=== PATIENT | male | born 1970 | race African-American/Black ===

== ENCOUNTER 2024-10-08 23:16 | Emergency (ER) | payer MEDICAID, SELFPAY ==
[2024-10-08 23:19] VITALS: BMI 28.6
--- NOTE | 2024-10-08 23:20 | PD.EDFEVER ---
ED Fever RME/HPI General Chief Complaint: Fever Stated Complaint: NAUSEA, FEVER, COUGH, BLOOD IN SPUTUM Time Seen by Provider: 10/08/24 23:32 Arrival date/time: 10/08/24 23:16 RME / HPI RME / HPI Narrative: This section includes all my notes and documentations, including HPI, PE, and ED course. Aristides Evans MD HPI: 54yo male with about a week history of worsening cough, productive cough, purulent sputum, and dyspnea. With subjective fever and chills and aches. No chest pain. No other complaints. ROS: All negative except as documented in HPI. Physical Exam: General: Alert and oriented. Appearance no malaise noted. Hypoxia noted. Eyes: Conjunctivae and lids clear. ENT: No nasal congestion. Neck: Supple. Heart: RRR. Lungs: No respiratory distress. Mildly decreased air movement with rales. Abdomen: Soft and nontender. Normal bowel sounds. No distension. No rebound or guarding. Back: No CVA tenderness. Legs: No edema. Skin: Warm and dry. Neuro: Alert and oriented X 3. I reviewed all diagnostic test results. My interpretation of the EKG is sinus tachycardia with nonspecific ST-T changes. My interpretation of the chest x-ray is mild heart failure and infiltrates. Blood tests remarkable for WBC 13.0, CRP 1.2, BNP 275. UA remarkable for positive leukocyte esterase, 17 WBCs, and rare bacteria. UDS positive for marijuana. COVID/Influenza negative. At this point, diagnoses include Acute respiratory failure with hypoxia, CHF (congestive heart failure), Pneumonia, UTI (urinary tract infection). Treatment here included Toradol, Solumedrol, Duoneb, NS, Lasix, Rocephin, Azithromycin, and topical nitroglycerin. He felt much better. Recommended admission. Patient declined. Discussed potential risks, including sudden . We couldn't change his mind. Patient signed out against medical advice. Discharge instructions from Dr. Evans: --After extensive evaluation, you have severe diagnoses. Including hypoxia needing oxygen, pneumonia, UTI, and heart failure with fluid in your lungs. --Recommend admission into the hospital for further care. But you declined and signed AGAINST MEDICAL ADVICE form. Despite discussing potential risks, including sudden , we couldn't change your mind. --No physical exertion for 3 days to help rest the lungs. ?No smoking or exposure to smoking or pets or dust or cold or humidity. --Zithromax and cefdinir to kill the germs causing the pneumonia and UTI. --Albuterol 2 puffs every 4-6 hours as needed for cough or shortness of breath. --When you were younger, your heart was strong and pumped everything out. Now that your heart is weaker, it?s not able to pump all the blood/fluid out of the heart when it pumps. So the remaining blood/fluid goes back into your lungs. --To help urinate out the extra fluid, take Lasix daily. --When sitting or resting and sleeping, elevate the head of bed and elevate your feet/ankles above your waist level. This is extremely important to get the extra fluid back into your circulation so you can urinate out the extra fluid. --Limit all oral fluid intake to less than 4 cups per 24 hours for 3 days. Then don't go out of your way to drink too much fluid--only when your body tells you to drink. --Eat a banana daily because Lasix can lower your potassium level. --See a private doctor on 10/10/2024 for recheck and further care. Ask to review all test results and official radiology reports, to make sure you receive all necessary follow-ups and monitoring. Ask for help until you are completely better. To make sure there is no serious underlying heart condition, ask to help you get more tests for your heart that cannot be done here in the ER. Such as Holter Monitor (cardiac monitoring at home from a day to even a month), heart stress test (on treadmill or with medication), echocardiogram (imaging of your heart structures), heart catherization (checking for blockages in your heart arteries), and a referral to see a Treatment Plant Mechanic. --Seek immediate medical care with worsening or with any concerns. Aristides Evans MD Related Data Previous Rx's ?Medication ?Instructions ?Recorded ibuprofen 800 mg tablet 800 mg PO TID PRN pain #30 tabs 07/27/20 hydrocodone 5 mg-acetaminophen 325 1 tab PO BID PRN pain #10 tabs 08/03/23 mg tablet ibuprofen 800 mg tablet 800 mg PO TID PRN pain #30 tabs 08/03/23 albuterol sulfate 90 mcg/actuation 2 puff inhalation Q6H PRN 10/09/24 aerosol inhaler shortness of breath or wheezing #8.5 grams azithromycin 500 mg tablet 500 mg PO QDAY 3 days #3 tabs 10/09/24 (Zithromax TRI-AMY) cefdinir 300 mg capsule 300 mg PO BID #14 caps 10/09/24 furosemide 20 mg tablet (Lasix) 20 mg PO QDAY #30 tabs 10/09/24 Allergies Allergy/AdvReac Type Severity Reaction Status Date / Time No Known Allergies Allergy Verified 10/08/24 23:23 Review of Systems Review of Systems Systems Reviewed: All systems reviewed, normal except as documented Past Medical History Past Medical History NEUROLOGIC: Negative Neurological Disorders CARDIAC: Negative Cardiac Disorders Social History SMOKING STATUS: Never smoker Physical Exam Narrative Physical exam: As noted in HPI. Course Course Course Narrative: CXR is ordered for determining the etiology of fever. Quality Measures none Orders Category Date Time Status Bedside COVID-19 Antigen Test NOW Care 10/08/24 23:25 Completed Bedside Influenza A&B Antigen Test NOW Care 10/08/24 23:25 Completed EKG (ED ONLY) *Do not use* NOW Care 10/08/24 23:42 Completed Saline [Insert IV] NOW Care 10/08/24 23:25 Completed EKG (ED Only) Stat Exams 10/08/24 23:42 Ordered XR chest 1V portable Stat Exams 10/08/24 23:26 Completed BNP [B-Type Natriuretic Peptide] Stat Lab 10/08/24 23:51 Completed Bilirubin,Direct Stat Lab 10/08/24 23:51 Completed Blood Culture (Lab) Stat Lab 10/08/24 23:48 Received CBC Stat Lab 10/08/24 23:51 Completed CMP [Comprehensive Metabolic Panel] Stat Lab 10/08/24 23:51 Completed CRP [C-Reactive Protein] Stat Lab 10/08/24 23:51 Completed D-Dimer Stat Lab 10/08/24 23:51 Completed Drug Screen,Urine Stat Lab 10/08/24 23:42 Completed ESR [Sed Rate (ESR)] Stat Lab 10/08/24 23:51 Completed Magnesium Stat Lab 10/08/24 23:51 Completed Procalcitonin Stat Lab 10/08/24 23:51 Completed Troponin I Stat Lab 10/08/24 23:51 Completed UA, C/S IF [Urinalysis, C/S if Indicated] Stat Lab 10/08/24 22:50 Completed Urine Culture Stat Lab 10/08/24 22:50 Received Albuterol/Ipratr Rt Sujatha [Duoneb Rt Sujatha] Med 10/08/24 23:41 Discontinued 3 ml INH X1 ONE Azithromycin Po [Zithromax PO] Med 10/09/24 00:28 Discontinued 500 mg PO X1 ONE Furosemide Inj [Lasix Inj] Med 10/09/24 00:28 Discontinued 40 mg IVP X1 ONE Ketorolac Inj [Toradol Inj] Med 10/08/24 23:41 Discontinued 30 mg IVP X1 ONE MethylPREDNISolone.* [SoluMEDROL Inj] Med 10/08/24 23:41 Discontinued 125 mg IVP X1 ONE Morphine Inj Med 10/09/24 00:28 Discontinued 2 mg IVP X1 ONE Nitroglycerin Oint 2% [Nitro-paste Oint 2%] Med 10/09/24 00:28 Discontinued 1 inch TOP X1 ONE Sodium Chloride 0.9% 1000 ml [Ns] 1,000 ml Med 10/08/24 23:41 Discontinued IV 999 mls/hr cefTRIAXone/D5w 1gm IV premix [Rocephin/D5w 1gm IV Med 10/09/24 00:28 Discontinued premix] 1 gm in 50 ml IV X1 Vital Signs Vital signs: Vital Signs Pulse Rate 94 10/08/24 23:51 Respiratory Rate 20 10/08/24 23:51 Pulse Oximetry (%) 99 10/08/24 23:51 Fever MDM Narrative MDM Narrative:: 54yo male with about a week history of worsening cough, productive cough, purulent sputum, and dyspnea. With subjective fever and chills and aches. No chest pain. No other complaints. Patient data External records reviewed:: [facility] previous records (Per chart review, patient has no relevant previous ED visits.) Clinical information provided by:: patient Social determinants that could affect healthcare access:: none Patient has the following chronic illnesses:: none How is presenting disease/condition affected by chronic disease/condition?: no chronic disease Evaluation data The following diagnostics were reviewed and interpreted by me:: lab results, radiology exam(s) and EKG tracing(s) (My interpretation of the EKG is: Sinus tachycardia (108 bpm) with nonspecific ST-T changes. Aristides Evans MD) Lab and/or radiology exams considered but not ordered:: none Interpretation Summary: I reviewed all diagnostic test results. My interpretation of the EKG is sinus tachycardia with nonspecific ST-T changes. My interpretation of the chest x-ray is mild heart failure and infiltrates. Blood tests remarkable for WBC 13.0, CRP 1.2, BNP 275. UA remarkable for positive leukocyte esterase, 17 WBCs, and rare bacteria. UDS positive for marijuana. COVID/Influenza negative. Medications / Prescriptions Medications or Prescriptions considered but not ordered:: none Medication administrations:: Medication Administration History Discontinued Medications Albuterol/Ipratropium (Albuterol/Ipratropium (Duoneb) Rt Sujatha 3 Ml Nebu) 3 ml INH X1 ONE Stop: 10/08/24 23:42 Last Admin: 10/08/24 23:51 Dose: 3 ml Documented By: NICOLA Azithromycin (Azithromycin 250 Mg Tablet) 500 mg PO X1 ONE Stop: 10/09/24 00:29 Last Admin: 10/09/24 01:00 Dose: 500 mg Documented By: DT Furosemide (Furosemide Inj 10 Mg/Ml 4ml Vial) 40 mg IVP X1 ONE Stop: 10/09/24 00:29 Last Admin: 10/09/24 01:04 Dose: 40 mg Documented By: DT Sodium Chloride (Ns) 1,000 mls @ 999 mls/hr IV .Q1H1M ONE Stop: 10/09/24 00:41 Last Infusion: 10/09/24 00:39 Dose: 999 mls/hr Documented By: Admin: 10/09/24 00:08 Dose: 999 mls/hr Documented By: DT Ceftriaxone Sodium/Dextrose (Rocephin/D5w 1gm Iv Premix) 1 gm in 50 mls @ 100 mls/hr IV X1 ONE Stop: 10/09/24 00:57 Last Infusion: 10/09/24 01:31 Dose: Infused Documented By: Admin: 10/09/24 01:01 Dose: 100 mls/hr Documented By: DT Ketorolac Tromethamine (Ketorolac Inj 30 Mg/Ml Vial) 30 mg IVP X1 ONE Stop: 10/08/24 23:42 Last Admin: 10/09/24 00:10 Dose: 30 mg Documented By: DT Methylprednisolone Sodium Succinate (Methylprednisolone Sod Succ 62.5 Mg/Ml 2ml Vial) 125 mg IVP X1 ONE Stop: 10/08/24 23:42 Last Admin: 10/09/24 00:08 Dose: 125 mg Documented By: DT Morphine Sulfate (Morphine Sulf Inj 10 Mg/Ml Vial) 2 mg IVP X1 ONE Stop: 10/09/24 00:29 Last Admin: 10/09/24 01:20 Dose: 2 mg Documented By: DT Nitroglycerin (Nitroglycerin Oint 2% 1 Inch Packet) 1 inch TOP X1 ONE Stop: 10/09/24 00:29 Last Admin: 10/09/24 01:05 Dose: 1 inch Documented By: DT Toradol, Solumedrol, Duoneb, NS, Lasix, Rocephin, Azithromycin, Nitroglycerin Consultations Consultation(s) initiated? (list below): Yes Consultation #1 (Physician, Specialty, Details): I discussed the case with our hospitalist. About the presentation and exam and diagnostics and treatments here. And need of further care in the hospital. Will accept the patient. Diagnosis Fever Differential Diagnosis: community acquired pneumonia, viral infection, sepsis, influenza and other (COVID, URI) Most likely diagnosis given after review of the tests above:: Acute respiratory failure with hypoxia, CHF (congestive heart failure), Pneumonia, UTI (urinary tract infection) Admission Indicated Admission indicated?: indicated Explain why admission is indicated or not indicated:: Acute respiratory failure with hypoxia, CHF (congestive heart failure), Pneumonia, UTI (urinary tract infection) Admission Request Was there a request for admission?: Yes Admission Attestation Admission request attestation: Discussed case with Hospitalist service regarding admission. Discussed patients ED course, exam findings, labs, and radiology results. The Hospitalist [agrees] to accept the patient for admission. Recommended admission. Patient declined. Discussed potential risks, including sudden . We couldn't change his mind. Patient signed out against medical advice. Disposition Plan Disposition Plan: other (specify) (Against Medical Advice) Discharge Plan Plan Patient Disposition: Left Against Medical Advice Prescriptions/Referrals Prescriptions/Med Rec: New furosemide [Lasix] 20 mg tablet 20 mg PO QDAY Qty: 30 0RF albuterol sulfate 90 mcg/actuation HFA aerosol inhaler 2 puff inhalation Q6H PRN (Reason: shortness of breath or wheezing) Qty: 8.5 0RF cefdinir 300 mg capsule 300 mg PO BID Qty: 14 0RF azithromycin [Zithromax TRI-AMY] 500 mg tablet 500 mg PO QDAY 3 Days Qty: 3 0RF No Action ibuprofen 800 mg tablet 800 mg PO TID PRN (Reason: pain) Qty: 30 0RF ibuprofen 800 mg tablet 800 mg PO TID PRN (Reason: pain) Qty: 30 0RF hydrocodone-acetaminophen 5-325 mg tablet 1 tab PO BID MDD 10 PRN (Reason: pain) Qty: 10 0RF Referrals: No Primary/Family,Physician [Primary Care Provider] - In 1 week Problem List Clinical Impression: Acute respiratory failure with hypoxia, CHF (congestive heart failure), Pneumonia, UTI (urinary tract infection) Patient/Caregiver Discharge Instructions Discharge Activity: activity as tolerated Education Materials: ED CHF Left Side, ED Pneumonia (Adult), ED Bladder Infection, Male (Adult) Additional Instructions: Discharge instructions from Dr. Evans: --After extensive evaluation, you have severe diagnoses. Including hypoxia needing oxygen, pneumonia, UTI, and heart failure with fluid in your lungs. --Recommend admission into the hospital for further care. But you declined and signed AGAINST MEDICAL ADVICE form. Despite discussing potential risks, including sudden , we couldn't change your mind. --No physical exertion for 3 days to help rest the lungs. ?No smoking or exposure to smoking or pets or dust or cold or humidity. --Zithromax and cefdinir to kill the germs causing the pneumonia and UTI. --Albuterol 2 puffs every 4-6 hours as needed for cough or shortness of breath. --When you were younger, your heart was strong and pumped everything out.? Now that your heart is weaker, it?s not able to pump all the blood/fluid out of the heart when it pumps.? So the remaining blood/fluid goes back into your lungs.? --To help urinate out the extra fluid, take Lasix daily. --When sitting or resting and sleeping, elevate the head of bed and elevate your feet/ankles above your waist level.? This is extremely important to get the extra fluid back into your circulation so you can urinate out the extra fluid. --Limit all oral fluid intake to less than 4 cups per 24 hours for 3 days. Then don't go out of your way to drink too much fluid--only when your body tells you to drink.?? --Eat a banana daily because Lasix can lower your potassium level.?? --See a private doctor on 10/10/2024 for recheck and further care. Ask to review all test results and official radiology reports, to make sure you receive all necessary follow-ups and monitoring. Ask for help until you are completely better. To make sure there is no serious underlying heart condition, ask to help you get more tests for your heart that cannot be done here in the ER.? Such as Holter Monitor (cardiac monitoring at home from a day to even a month), heart stress test (on treadmill or with medication), echocardiogram (imaging of your heart structures), heart catherization (checking for blockages in your heart arteries), and a referral to see a Treatment Plant Mechanic. --Seek immediate medical care with worsening or with any concerns.? Print Language: Maori
--- NOTE | 2024-10-08 23:26 | XR_ITS ---
Examination: PA chest single view TECHNIQUE: Upright PA chest single view Date and time: October 08, 2024 11:30 PM INDICATIONS: Fever chills shortness of breath today. FINDINGS: Mild heart failure, mild enlargement cardiac contour prominent vascular congestion and septal edema Consider superimposed bilateral perihilar pneumonia IMPRESSION: Mild heart failure Consider superimposed bilateral perihilar pneumonia
[2024-10-08 23:51] VITALS: PULSE 94; RESP 20; O2SAT 99
[2024-10-08] MEDS: ALBUTEROL/IPRATROPIUM (Duoneb) RT SOL 3 ML NEBU INH (23:51)
[2024-10-09] LABS: Collection Type, Urine Clean Catch
[2024-10-09 00:03] LABS: Basophils # (Auto) 0.0 Thou/mm3 (0.0-0.2); Basophils % (Auto) 0 % (0-2.5); Eosinophils # (Auto) 0.2 Thou/mm3 (0.0-0.5); Eosinophils % (Auto) 2 % (0-10); Hematocrit 42.3 % (41.0-53.0); Hemoglobin 14.5 g/dL (13.5-16.0); Immature Granulocytes Auto 0.07 Thou/mm3 (0.00-0.00); Lymphocytes # (Auto) 2.7 Thou/mm3 (1.0-4.8); Lymphocytes % (Auto) 20 % (10-50); Mean Corpuscular HGB Conc 34.3 g/dl (31.0-37.0); Mean Corpuscular Hemoglobin 32.9 pg (25.0-35.0); Mean Corpuscular Volume 96 fL (80-100); Monocytes # (Auto) 1.4 Thou/mm3 (0.0-0.8); Monocytes % (Auto) 11 % (0-12); Neutrophils # (Auto) 8.6 Thou/mm3 (1.8-7.7); Neutrophils % (Auto) 66 % (37-80); Nucleated Red Blood Cell # 0.00 Thou/mm3 (0.00-0.00); Nucleated Red Blood Cell % 0 /100 WBC (0); Platelet Count 407 Thou/mm3 (140-440); RDW Standard Deviation 45.7 fL (35.1-43.9); Red Blood Count 4.41 Miln/mm3 (4.50-5.90); White Blood Count 13.0 Thou/mm3 (3.8-10.6)
[2024-10-09] MEDS: MethylPREDNISolone SOD SUCC 62.5 MG/ML 2ML VIAL 125 MG IVP (00:08)
[2024-10-09] MEDS: SODIUM CHLORIDE 0.9% 1000 ML 1,000 ML 999 ML IV (00:08)
[2024-10-09 00:10] LABS: Bacteria,Urine Rare; Bilirubin,Urine Negative (Negative); Blood,Urine Negative (Negative); Clarity,Urine Clear (Clear/Hazy); Color,Urine Yellow (Lt Yel-Yel); Glucose, Urine Negative (Negative); Ketones,Urine 1+ (Negative); Leukocyte Esterase,Urine Positive (Negative); Nitrite,Urine Negative (Negative); PH,Urine 6.0 (5.0-7.0); Protein,Urine Trace (Neg - Trace); RBC,Urine 3 /hpf (0-3); Specific Gravity,Urine 1.033 (1.001-1.035); Squamous Epithelial Cell,Urine < 1 /hpf (0-5); Urobilinogen,Urine Negative mg/dL (0.0-1.0); WBC,Urine 17 /hpf (0-5)
[2024-10-09] MEDS: KETOROLAC INJ 30 MG/ML VIAL IVP (00:10)
[2024-10-09 00:12] LABS: Culture Indicated,Urine Yes
[2024-10-09 00:16] LABS: B-Type Natriuretic Peptide 275 pg/mL (0-100)
[2024-10-09 00:18] LABS: Sed Rate (ESR) 13 mm/hr (0-20)
[2024-10-09 00:21] LABS: D-Dimer 505 ng/mL (<600)
[2024-10-09 00:29] LABS: Amphetamine/Methamp Scrn,U Negative (Negative); Barbiturate Screen,Urine Negative (Negative); Benzodiazepines Screen,Urine Negative (Negative); Benzoylecgonine Screen, Ur Negative (Negative); Fentanyl Screen,Urine Negative (Negative); Opiate Screen,Urine Negative (Negative); THC Screen,Urine Positive (Negative)
[2024-10-09 00:32] LABS: Alanine Aminotransferase 122 U/L (10-49); Albumin, Serum 4.3 gm/dL (3.5-5.0); Albumin/Globulin Ratio 1.7 (1.2-2.2); Alkaline Phosphatase 58 U/L (46-116); Anion Gap 9 (7-16); Aspartate Amino Transferase 68 U/L (0-34); BUN/Creatinine Ratio 11 Ratio (12-20); Bilirubin,Direct 0.1 mg/dL (0.0-0.3); Bilirubin,Total 0.5 mg/dL (0.3-1.2); Blood Urea Nitrogen 14 mg/dL (9-23); C-Reactive Protein 1.2 mg/dL (0.0-0.9); Calcium 8.8 mg/dL (8.3-10.6); Calcium (Corrected) 8.8 mg/dL (8.5-10.1); Carbon Dioxide 26.7 mMol/L (20.0-31.0); Chloride 106 mMol/L (98-107); Creatinine (Component) 1.3 mg/dL (0.6-1.3); Estimated Creatinine Clearance 81.2 mL/min (>60); Globulin 2.6 gm/dL (2.3-3.5); Glucose 105 mg/dL (74-106); Magnesium 1.9 mg/dL (1.6-2.6); Osmolality,Calculated 283 (275-295); Potassium 4.8 mMol/L (3.4-5.1); Procalcitonin 0.08 ng/ml (0.0-0.49); Sodium 142 mMol/L (136-145); Total Protein 6.9 gm/dL (5.7-8.2); Troponin I 0.022 ng/mL (0.0-0.045); eGFR > 60 See Note
[2024-10-09] MEDS: AZITHROMYCIN 250 MG TABLET 500 MG PO (01:00)
[2024-10-09] MEDS: cefTRIAXone/D5w 1gm IV premix 1 GM/50 ML BAG IV (01:01)
[2024-10-09 01:04] VITALS: BP 156/118; PULSE 107
[2024-10-09] MEDS: FUROSEMIDE INJ 10 MG/ML 4ML VIAL 40 MG IVP (01:04)
[2024-10-09 01:05] VITALS: BP 156/118; PULSE 117
[2024-10-09] MEDS: NITROGLYCERIN OINT 2% 1 INCH PACKET TOP (01:05)
[2024-10-09] MEDS: MORPHINE SULF INJ 10 MG/ML VIAL 2 MG IVP (01:20)
[2024-10-09 01:40] VITALS: PULSE 115; RESP 14; TEMP 37; O2SAT 90
== END 2024-10-09 01:41 | disposition left against medical advice (07) ==
PROVIDERS: Emergency Provider Emergency Medicine
DX: J96.01 Acute respiratory failure with hypoxia (principal); I50.9 Heart failure, unspecified; J18.9 Pneumonia, unspecified organism; N39.0 Urinary tract infection, site not specified
CPT/HCPCS: 36415; 36600; 71045; 80053; 80307; 81001; 82248; 82803; 83735; 83880; 84145; 84484; 85025; 85379; 85652; 86140; 87040; 87086; 87400; 87811; 93005; 94640; 96361; 96365; 96375; 99284; A9270; J0696; J1885; J1938; J2270; J2919; J7030

== ENCOUNTER 2024-10-10 06:36 | Inpatient (IN) | payer MEDICAID, SELFPAY ==
[2024-10-10] VITALS (18 sets, daily range): BP systolic 121–179; BP diastolic 73–131; PULSE 102–120; RESP 14–28; TEMP 36.4–37.2; O2SAT 91–98; BMI 29.0; BMI 26.1
--- NOTE | 2024-10-10 06:41 | EKG_ITS ---
[facility] Test Date: 2024-10-10 Pat Name: RODRIGO CHAVARRIA Department: Room: - Gender: Male Card Tender: : 1970 Requested By: Chelita Chow Order Number: [id number] Reading MD: Chelita Chow Measurements Intervals [place] Rate: 123 P: 71 MD: 112 QRS: 80 QRSD: 97 T: 75 QT: 299 QTc: 428 Interpretive Statements SINUS TACHYCARDIA WITH SHORT MD INTERVAL LEFT VENTRICULAR HYPERTROPHY AND ST-T CHANGE [VOLTAGE CRITERIA PLUS ST/T ABNORMALITY] Compared to ECG 10/09/2024 00:32:06 Short MD interval now present ST (T wave) deviation now present Atrial abnormality no longer present T-wave abnormality no longer present /store/S0/[id number].pdf
--- NOTE | 2024-10-10 06:41 | XR_ITS ---
Examination: PA lateral chest 2 views TECHNIQUE: Upright PA lateral chest 2 views Date and time: October 10, 2024 0706 hours INDICATIONS: Chest pain short of breath beginning one week ago. FINDINGS: Moderate CHF Mild to moderate enlargement cardiac contour Prominent vascular congestion with perihilar edema The osseous structures are intact IMPRESSION: Moderate CHF
--- NOTE | 2024-10-10 07:15 | EDNOTE_ITS ---
ED SOB =RME/HPI General Chief Complaint: Shortness of Breath/Dyspnea Stated Complaint: DIFFICULTY BREATHING Time Seen by Provider: 10/10/24 07:19 Arrival date/time: 10/10/24 06:36 RME / HPI RME / HPI Narrative: 54 year old male with no stated medical history presents to the ED with progressively worsening shortness of breath, described as not getting enough air. Exacerbated when lying flat. Patient also complains of abdominal bloating and tightness sensation. Patient was evaluated in the ED two days ago (10/09/2023) for similar complaints of shortness of breath. 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 States yesterday he felt at his usual state of health with no need to use his inhaler. However, last night shortness of breath returned and has been worsening since. Denies any new or different symptoms today, other than the increased shortness of breath and abdominal discomfort. Denies fevers, chills, chest pain, abdominal pain, n/v/d, or urinary symptom. Related Data Previous Rx's ?Medication ?Instructions ?Recorded ibuprofen 800 mg tablet 800 mg PO TID PRN pain #30 t abs 07/27/20 hydrocodone 5 mg-acetaminophen 325 1 tab PO BID PRN pa in #10 tabs 08/03/23 mg tablet ibuprofen 800 mg tablet 800 mg PO TID PRN pain #30 t abs 08/03/23 albuterol sulfate 90 mcg/actuation 2 puff inhalation Q 6H PRN 10/09/24 aerosol inhaler shortness of breath or wheez ing #8.5 grams azithromycin 500 mg tablet 500 mg PO QDAY 3 days #3 ta bs 10/09/24 (Zithromax TRI-AMY) cefdinir 300 mg capsule 300 mg PO BID #14 caps 10/09 furosemide 20 mg tablet (Lasix) 20 mg PO QDAY #30 tabs 10/09/24 Allergies Allergy/AdvReac Type Severity Reaction Status Date / Time No Known Allergies Allergy Verified 10/08/24 23:23 Review of Systems Review of Systems Systems Reviewed: All systems reviewed, normal except as documented Past Medical History Past Medical History NEUROLOGIC: Negative Neurological Disorders CARDIAC: Negative Cardiac Disorders Social History SMOKING STATUS: Never smoker ED Exam Narrative Physical exam: Physical Exam: General: The vital signs were reviewed. Sinus tach on the monitor 120s blood pressure is normal O2 sat is 90 on room air. The patient is non-toxic, in no apparent distress and appears healthy with a patent airway, no respiratory distress and has no apparent circulatory problems. Head & Scalp: Normocephalic, atraumatic. Face: Appears normal and is without lesions, deformity. Ears: Left external pinna appears normal. Right external pinna appears normal. Eyes: The sclera is anicteric. No obvious photophobia. The Left and Right Orbit/Lid/Conjunctiva appears normal without swelling, discoloration or injection. Nose: The nose is without deformity, discharge or tenderness; Throat: Appears normal. The mucous membranes are pink and moist without exudates, redness or mass seen. The tongue appears normal. Neck: The neck is supple and no apparent mass or adenopathy. Chest: The chest wall is normal in size and symmetry and has no chest wall tenderness or crepitus. The patient displays normal ventilator effort without retractions, accessory muscle use and has adequate air movement bilaterally with no wheezes and no rales. Cardiovascular: Regular rate and rhythm; No murmurs, rubs, or gallops; Gastrointestinal: The abdomen appears normal. No obvious hernias or mass. The abdomen is soft and benign, non-distended, with no pain, no guarding and no rebound tenderness. Bowel sounds are present and normal sounding. No CVA tenderness. Genitourinary: Back/Spine: Extremities/Musculoskeletal/lymphatic: The bilateral upper and lower extremities are warm. There is no evidence of arterial insufficiency. There is no evidence of venous insufficiency/edema. The patient spontaneously moves bilateral upper and lower extremities with no pain and no limitation of movement. There is no apparent, injury or trauma. Skin: The skin is warm, dry and intact. No rashes. No petechia. No purpura. No abnormal bruising. The color is appropriate with no cyanosis. Mental status/Psychiatric: Mental status is appropriate for age. The patient has no apparent delusions, visual hallucinations, no apparent audible hallucinations. The patient has no apparent suicidal thoughts/ideation and no apparent homicidal thoughts/ideation. Neurological: The patient is awake, alert, interactive, cordial, cooperative and is oriented to name and situation. The patient follows commands and answers historical question with no impairment. There is no visual disturbance apparent. The pupils are equal and reactive bilaterally with normal eye movements and no diplopia The bilateral upper and lower extremities have normal strength, normal range of motion and normal functioning. The gait, station and balance appear to be baseline with no acute change Course Quality Measures none Orders Category Date Time Status Bedside COVID-19 Antigen Test NOW Care 10/10/24 07:32 Active Bedside Influenza A&B Antigen Test NOW Care 10/10/24 07:[address] Screening NOW Care 10/10/24 07:31 Active Dyed Raw Stock Blower Feeder NOW Care 10/10/24 06:42 Active EKG (ED ONLY) *Do not use* NOW Care 10/10/24 06:41 Completed EKG (ED ONLY) *Do not use* NOW Care 10/10/24 09:19 Completed Miscellaneous Nursing Order NOW Care 10/10/24 07:[address] angio chest Stat Exams 10/10/24 07:[address] head/brain wo con Stat Exams 10/10/24 10:01 Completed EKG (ED Only) Stat Exams 10/10/24 06:41 Draft EKG (ED Only) Stat Exams 10/10/24 09:19 Draft XR chest 2V Stat Exams 10/10/24 06:41 Completed B-Type Natriuretic Peptide Stat Lab 10/10/24 07:12 Completed Blood Culture (Lab) Stat Lab 10/10/24 07:35 Received CBC Stat Lab 10/10/24 07:12 Completed Cocci Serology, Unk History Stat Lab 10/10/24 09:57 Results Comprehensive Metabolic Panel Stat Lab 10/10/24 07:35 Completed D-Dimer Stat Lab 10/10/24 07:35 Completed Drug Screen,Urine Stat Lab 10/10/24 10:10 Completed Lactate (Lactic Acid) Stat Lab 10/10/24 07:35 Completed Magnesium Stat Lab 10/10/24 07:35 Completed Partial Thromboplastin Time Stat Lab 10/10/24 07:35 Completed Prothrombin Time with INR Stat Lab 10/10/24 07:35 Completed RSV [Respiratory Syncytial Virus Ag] Stat Lab 10/10/24 10:16 Completed Strep A Rapid Stat Lab 10/10/24 10:16 Completed Troponin I Stat Lab 10/10/24 07:35 Completed UA [Urinalysis] Stat Lab 10/10/24 10:10 Completed Venous Blood Gas Stat Lab 10/10/24 07:35 Completed Acetaminophen Tab [Tylenol ES Tab] Med 10/10/24 09:35 Discontinued 1,000 mg PO X1 ONE Azithromycin Inj [Zithromax Inj] 500 mg Med 10/10/24 09:35 Discontinued Sodium Chloride 0.9% 250 ml [Ns] 250 ml IV QDAY Morphine Inj Med 10/10/24 09:35 Discontinued 4 mg IVP X1 ONE Nitroglycerin Oint 2% [Nitro-paste Oint 2%] Med 10/10/24 10:27 Discontinued 1 inch TOP X1 ONE Ondansetron Inj [Zofran Inj] Med 10/10/24 09:35 Discontinued 4 mg IV X1 ONE Piper/Tazo 3.375 gm Premix [Zosyn] Med 10/10/24 07:31 Discontinued 3.375 gm in 50 ml IV X1 Sodium Chloride 0.9% 1000 ml [Ns] 1,000 ml Med 10/10/24 07:23 Discontinued IV 999 mls/hr hydrALAZINE INJ [Apresoline Inj] Med 10/10/24 10:27 Discontinued 20 mg IVP X1 ONE Vital Signs Vital signs: Vital Signs Temperature 97.6 F 10/10/24 06:45 Pulse Rate 120 H 10/10/24 06:45 Respiratory Rate 22 H 10/10/24 06:45 Blood Pressure 159/113 H 10/10/24 06:45 Pulse Oximetry (%) 95 10/10/24 06:45 Oxygen Delivery Method Room Air 10/10/24 06:45 Pulse ox is 95% on room air which is adequate. Shortness of Breath / Dyspnea MDM Narrative MDM Narrative:: Norma Ambrosio am scribing for and in the presence of Dr. Alexandra. Patient returns with increasing shortness of breath cough with minimal sputum no measured fever he is healthy states otherwise has no history of hypertension up until recently. 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 He is complaining of his body aching more and later on in the ER visit he started coughing up blood which she states is new. A rectal temperature was done which was negative for fever. D-dimers were done which were negative ruling out PE but with the unexplained worsening dyspnea with relatively clear lungs no wheezing and to further clarify the pulmonary architecture a CT was done. Because of dyspnea tachycardia and probable pneumonia with hemoptysis atypical organisms are now concerning. Cocci titers were added and azithromycin was added to the Zosyn CT report came back with no evidence of pneumonia and no pulmonary embolus radiologist feels this is more pulmonary edema. Note the BNP is only 104 today was little elevated 2 days ago. Uncertain what this means. Cannot rule out a bilateral infectious process nor an atypical pneumonia. Because he is having hemoptysis uncertain if this is pulmonary edema with frothy blood or a infection that looks like fluid. Note he was hypoxic initially is better on 6 L of nasal cannula. His blood pressure is creeped up to 180/120 and his EKGs both have LVH by voltage criteria. Troponin is negative BNP is minimally above the negative range at 104. For the hypoxemia the uncertainty of this dyspnea patient will be admitted to start this. Hospitalist resident was was called and they will come down to evaluate the patient for admission. Also patient is complaining of bodyaches he is also quite anxious. He also clearly states his blood pressure was seen by a doctor couple years ago and they told him everything was normal at that time. Patient data External records reviewed:: [facility] previous records (I reviewed ED visit on 10/08/2024 ) Clinical information provided by:: patient Social determinants that could affect healthcare access:: substance use (hx of marijuana use ) Patient has the following chronic illnesses:: None reported How is presenting disease/condition affected by chronic disease/condition?: no chronic disease Evaluation data The following diagnostics were reviewed and interpreted by me:: lab results, radiology exam(s) and EKG tracing(s) (EKG #1 06:46 AM. Sinus tachycardia with short CO interval, rate 123, left ventricular hypertrophy, no STEMI. EKG #2 09:21 AM. Sinus tachycardia, rate 116, left ventricular hypertrophy, no STEMI. ) Lab and/or radiology exams considered but not ordered:: None Interpretation Summary: Ordering Physician: Armond Alexandra MD Date of Service: 10/10/24 Procedure(s): CT angio chest Accession Number(s): [id number] cc: Zhen Epperson MD; Armond Alexandra MD; Vinicio Styles MD~ Examination: CTA chest with intravenous contrast 2-D reconstructions 3-D reconstructions, vascular Date and time of exam: October 10, 2024 0836 hours INDICATIONS: Tachycardia chest pain shortness of breath today CTDI: vol (mGy) 14.8 DLP: (mGycm) 340 Technique: Multiple axial sections of the thorax have been obtained. 3 mm slice thickness, from below the hemidiaphragms to above the apices of the lungs. Mediastinal and lung density settings have been obtained. 2-D sagittal and coronal reconstructions. 3-D angiographic renderings, 3-D volume renderings, 3D post processing, vascular maximum intensity projections obtained. Contrast administered is 100 cc Isovue-370. Low dose protocols were performed. One or more of the following dose reduction techniques were used; automated exposure control, adjustment of the mA and/or KV according to patient size, use of iterative reconstruction technique. Findings: No thoracic aortic aneurysmal dilatation or dissection No pulmonary artery filling defects Moderate enlargement cardiac contour, prominent vascular congestion Widespread septal pulmonary edema Small bilateral pleural effusions No focal liver lesion Kidneys partially visualized no hydronephrosis IMPRESSION: Negative for pulmonary artery emboli Moderate CHF Dictated By: Vinicio Styles MD Signed By: <Electronically signed by Vinicio Styles MD in OV> 10/10/24 0939 Ordering Physician: Armond Alexandra MD Date of Service: 10/10/24 Procedure(s): CT head/brain wo [facility] Accession Number(s): [id number] cc: Zhen Epperson MD; Armond Alexandra MD; Vinicio Styles MD~ Examination: CT brain head without contrast. 2-D sagittal coronal reconstructions Date and time of exam:October 10, 2024 1048 hours INDICATIONS: Generalized headaches beginning this morning CTDI: vol (mGy):54.1 DLP: (mGycm):1112 Technique: Multiple CT axial sections of the brain have been obtained, 5 mm slice thickness. Contrast has not been administered. 2-D sagittal, coronal reconstructions have been obtained Low dose protocols were performed. One or more of the following dose reduction techniques were used; automated exposure control, adjustment of the mA and/or KV according to patient size, use of iterative reconstruction technique. Findings: No significant ventricular enlargement. Intra-axial or extra-axial hemorrhage density is not seen. No mass effect or midline shift Basal cisterns are not remarkable. Fourth ventricle is midline. Cranial vault intact. Impression: Negative for acute hemorrhage, mass effect or midline shift Mild chronic pansinusitis Dictated By: Vinicio Styles MD Signed By: <Electronically signed by Vinicio Styles MD in OV> 10/10/24 1103 Ordering Physician: Chelita Garrett PA-C Date of Service: 10/10/24 Procedure(s): XR chest 2V Accession Number(s): [id number] cc: Zhen Epperson MD; Vinicio Styles MD; Chelita Garrett PA-C~ Examination: PA lateral chest 2 views TECHNIQUE: Upright PA lateral chest 2 views Date and time: October 10, 2024 0706 hours INDICATIONS: Chest pain short of breath beginning one week ago. FINDINGS: Moderate CHF Mild to moderate enlargement cardiac contour Prominent vascular congestion with perihilar edema The osseous structures are intact IMPRESSION: Moderate CHF Dictated By: Vinicio Styles MD Signed By: <Electronically signed by Vinicio Styles MD in OV> 10/10/24 1106 Medications / Prescriptions Medications or Prescriptions considered but not ordered:: None Medication administrations:: Medication Administration History Acetaminophen (Acetaminophen 325 Mg Tablet) 650 mg PO Q6H PRN PRN Reason: PAIN SCALE 1-3 (mild Stop: 11/09/24 14:51 Acetaminophen (Acetaminophen 325 Mg Tablet) 650 mg PO Q6H PRN PRN Reason: Fever >100.4 Stop: 11/09/24 14:51 Hydrocodone Bitart/Acetaminophen (Hydrocodone/Apap 10/325 Tab) 1 tab PO Q4HR PRN PRN Reason: PAIN SCALE 7-10 (Severe Stop: 10/15/24 14:51 Ceftriaxone Sodium/Dextrose (Rocephin/D5w 1gm Iv Premix) 1 gm in 50 mls @ 100 mls/hr IV QDAY LINDA Stop: 10/17/24 12:29 Last Infusion: 10/10/24 14:04 Dose: Infused Documented By: Admin: 10/10/24 13:24 Dose: 100 mls/hr Documented By: GUSTABO Azithromycin 250 mg/ Sodium (Chloride) 250 mls @ 250 mls/hr IV QDAY LINDA Stop: 10/18/24 08:59 Levalbuterol HCl (Levalbuterol Rt 0.31 Mg/3 Ml Nebu) 0.31 mg INH Q8HR PRN PRN Reason: WHEEZING Stop: 11/09/24 12:23 Losartan Potassium (Losartan Potassium 25 Mg Tablet) 25 mg PO QDAY LINDA Stop: 11/10/24 08:59 Ondansetron HCl (Ondansetron Inj 2 Mg/Ml Inj 2 Ml) 4 mg IVP Q6H PRN; Protocol PRN Reason: NAUSEA OR VOMITING Stop: 11/09/24 14:51 Oxycodone/Acetaminophen (Oxycodone/Apap 5/325 Tablet) 1 tab PO Q6H PRN PRN Reason: PAIN SCALE 4-6 (Moderate Stop: 10/15/24 14:51 Pantoprazole Sodium (Pantoprazole Inj 40 Mg Vial) 40 mg IVP QDAY LINDA Stop: 11/09/24 14:59 Last Admin: 10/10/24 15:09 Dose: 40 mg Documented By: GM Discontinued Medications Acetaminophen (Acetaminophen 500 Mg Tablet) 1,000 mg PO X1 ONE Stop: 10/10/24 09:36 Last Admin: 10/10/24 09:58 Dose: 1,000 mg Documented By: GUSTABO Albuterol/Ipratropium (Albuterol/Ipratropium (Duoneb) Rt Sujatha 3 Ml Nebu) 3 ml INH Q4HRRT LINDA Stop: 11/09/24 11:29 Last Admin: 10/10/24 11:35 Dose: 3 ml Documented By: SLIME Furosemide (Furosemide Inj 10 Mg/Ml 4ml Vial) 40 mg IVP X1 ONE Stop: 10/10/24 12:11 Last Admin: 10/10/24 13:24 Dose: 40 mg Documented By: GUSTABO Hydralazine HCl (Hydralazine Inj 20 Mg/Ml Vial) 20 mg IVP X1 ONE Stop: 10/10/24 10:28 Last Admin: 10/10/24 10:56 Dose: 20 mg Documented By: GUSTABO Sodium Chloride (Ns) 1,000 mls @ 999 mls/hr IV .Q1H1M ONE Stop: 10/10/24 08:23 Last Infusion: 10/10/24 10:21 Dose: Infused Documented By: Admin: 10/10/24 07:40 Dose: 999 mls/hr Documented By: GUSTABO Piperacillin/Tazobactam/Dextrose (Zosyn) 3.375 gm in 50 mls @ 100 mls/hr IV X1 ONE Stop: 10/10/24 08:00 Last Infusion: 10/10/24 09:41 Dose: Infused Documented By: Admin: 10/10/24 07:49 Dose: 100 mls/hr Documented By: GUSTABO Azithromycin 500 mg/ Sodium (Chloride) 250 mls @ 250 mls/hr IV QDAY LINDA Stop: 10/17/24 09:34 Last Infusion: 10/10/24 11:38 Dose: Infused Documented By: Admin: 10/10/24 09:57 Dose: 250 mls/hr Documented By: GUSTABO Morphine Sulfate (Morphine Sulf Inj 10 Mg/Ml Vial) 4 mg IVP X1 ONE Stop: 10/10/24 09:36 Last Admin: 10/10/24 09:54 Dose: 4 mg Documented By: GUSTABO Nitroglycerin (Nitroglycerin Oint 2% 1 Inch Packet) 1 inch TOP X1 ONE Stop: 10/10/24 10:28 Last Admin: 10/10/24 11:00 Dose: 1 inch Documented By: GUSTABO Ondansetron HCl (Ondansetron Inj 2 Mg/Ml Inj 2 Ml) 4 mg IV X1 ONE; Protocol Stop: 10/10/24 09:36 Last Admin: 10/10/24 09:54 Dose: 4 mg Documented By: AA See above Consultations Consultation(s) initiated? (list below): No Diagnosis Shortness of Breath Differential Diagnosis: acute exacerbation of chronic obstructive airways disease, congestive heart failure, community acquired pneumonia and pulmonary embolism Most likely diagnosis given after review of the tests above:: Pulmonary edema Hypertensive urgency Headache Pneumonia Acute dyspnea Hypoxemia Admission Indicated Admission indicated?: indicated Admission Request Was there a request for admission?: Yes Admission Attestation Admission request attestation: Discussed case with [] from Hospitalist service regarding admission. Discussed patients ED course, exam findings, labs, and radiology results. The Hospitalist [agrees,declines] to accept the patient for admission. Disposition Plan Disposition Plan: Admit Critical Care Time Critical Care Time Critical Care Time: Yes Total Critical Care Time (min.): 50 Attestation: The high probability of sudden, clinically significant deterioration in the patient's condition required the highest level of my preparedness to intervene urgently. The services I provided to this patient were to treat and/or prevent clinically significant deterioration. Services included the following: chart data review, reviewing nursing notes and/or old charts, documentation time, hospice consultant collaboration regarding findings and treatment options, medication orders and management, direct patient care, vital sign assessments and ordering, interpreting and reviewing diagnostic studies and lab tests. Aggregate critical care time includes only time during which I was engaged in work directly related to the patient's care, as described above, whether at bedside or elsewhere in the Emergency Department. It did not include time spent performing other reported procedures or the services of residents, students, nurses or physician assistants. Discharge Plan Plan Patient Disposition: Admit Acute Care w/in Hospital Discharge Disposition comment: Hospitalist Problem List Clinical Impression: Pneumonia, Acute dyspnea, Hypoxemia, Hemoptysis, Hypertensive urgency, Pul monary edema, Headache
--- NOTE | 2024-10-10 07:31 | XR_ITS ---
Examination: CTA chest with intravenous contrast 2-D reconstructions 3-D reconstructions, vascular Date and time of exam: October 10, 2024 0836 hours INDICATIONS: Tachycardia chest pain shortness of breath today CTDI: vol (mGy) 14.8 DLP: (mGycm) 340 Technique: Multiple axial sections of the thorax have been obtained. 3 mm slice thickness, from below the hemidiaphragms to above the apices of the lungs. Mediastinal and lung density settings have been obtained. 2-D sagittal and coronal reconstructions. 3-D angiographic renderings, 3-D volume renderings, 3D post processing, vascular maximum intensity projections obtained. Contrast administered is 100 cc Isovue-370. Low dose protocols were performed. One or more of the following dose reduction techniques were used; automated exposure control, adjustment of the mA and/or KV according to patient size, use of iterative reconstruction technique. Findings: No thoracic aortic aneurysmal dilatation or dissection No pulmonary artery filling defects Moderate enlargement cardiac contour, prominent vascular congestion Widespread septal pulmonary edema Small bilateral pleural effusions No focal liver lesion Kidneys partially visualized no hydronephrosis IMPRESSION: Negative for pulmonary artery emboli Moderate CHF
[2024-10-10] MEDS: SODIUM CHLORIDE 0.9% 1000 ML 1,000 ML 999 ML IV (07:40)
[2024-10-10 07:48] LABS: Base Excess, Venous 4 (-3-3); Lactate (Lactic Acid) 1.6 mMol/L (0.4-2.0); O2 Saturation, Venous 81 % (96-97); PCO2, Venous 32 mmHg (36-56); PO2, Venous 39 mmHg (15-58); pH, Venous 7.52 (7.33-7.66)
[2024-10-10] MEDS: PIPER/TAZO 3.375 GM PREMIX 3.375 GM/50 ML BAG IV (07:49)
[2024-10-10 07:55] LABS: Basophils # (Auto) 0.0 Thou/mm3 (0.0-0.2); Basophils % (Auto) 0 % (0-2.5); Eosinophils # (Auto) 0.0 Thou/mm3 (0.0-0.5); Eosinophils % (Auto) 0 % (0-10); Hematocrit 42.8 % (41.0-53.0); Hemoglobin 14.5 g/dL (13.5-16.0); Immature Granulocytes Auto 0.09 Thou/mm3 (0.00-0.00); Lymphocytes # (Auto) 2.3 Thou/mm3 (1.0-4.8); Lymphocytes % (Auto) 18 % (10-50); Mean Corpuscular HGB Conc 33.9 g/dl (31.0-37.0); Mean Corpuscular Hemoglobin 33.3 pg (25.0-35.0); Mean Corpuscular Volume 98 fL (80-100); Monocytes # (Auto) 1.5 Thou/mm3 (0.0-0.8); Monocytes % (Auto) 11 % (0-12); Neutrophils # (Auto) 9.1 Thou/mm3 (1.8-7.7); Neutrophils % (Auto) 70 % (37-80); Nucleated Red Blood Cell # 0.00 Thou/mm3 (0.00-0.00); Nucleated Red Blood Cell % 0 /100 WBC (0); Platelet Count 361 Thou/mm3 (140-440); RDW Standard Deviation 46.1 fL (35.1-43.9); Red Blood Count 4.35 Miln/mm3 (4.50-5.90); White Blood Count 13.0 Thou/mm3 (3.8-10.6)
[2024-10-10 08:10] LABS: D-Dimer 536 ng/mL (<600)
[2024-10-10 08:23] LABS: Alanine Aminotransferase 115 U/L (10-49); Albumin, Serum 4.3 gm/dL (3.5-5.0); Albumin/Globulin Ratio 1.5 (1.2-2.2); Alkaline Phosphatase 54 U/L (46-116); Anion Gap 8 (7-16); Aspartate Amino Transferase 55 U/L (0-34); BUN/Creatinine Ratio 17 Ratio (12-20); Bilirubin,Total 0.6 mg/dL (0.3-1.2); Blood Urea Nitrogen 22 mg/dL (9-23); Calcium 8.8 mg/dL (8.3-10.6); Calcium (Corrected) 8.8 mg/dL (8.5-10.1); Carbon Dioxide 26.6 mMol/L (20.0-31.0); Chloride 107 mMol/L (98-107); Creatinine (Component) 1.3 mg/dL (0.6-1.3); Estimated Creatinine Clearance 81.7 mL/min (>60); Globulin 2.8 gm/dL (2.3-3.5); Glucose 114 mg/dL (74-106); Magnesium 1.8 mg/dL (1.6-2.6); Osmolality,Calculated 287 (275-295); Potassium 4.0 mMol/L (3.4-5.1); Sodium 142 mMol/L (136-145); Total Protein 7.1 gm/dL (5.7-8.2); Troponin I < 0.020 ng/mL (0.0-0.045); eGFR > 60 See Note
[2024-10-10 08:49] LABS: B-Type Natriuretic Peptide 104 pg/mL (0-100)
[2024-10-10 09:05] LABS: INR 1.1 (0.9-1.3); Partial Thromboplastin Time 28.0 Seconds (22.0-36.0); Prothrombin Time 12.2 Seconds (9.0-12.2)
--- NOTE | 2024-10-10 09:19 | EKG_ITS ---
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pdf
--- NOTE | 2024-10-10 09:19 | PC.NURSE ---
Patient c/o 10/10 upper mid chest pain, sob and states he is coughing up blood, Dr. Alexandra made aware, new order received for ekg, Alen at bedside performing EKG.
--- NOTE | 2024-10-10 09:26 | PC.NURSE ---
Called [facility], spoke with Zachery he will speak with Radiologist about reading xrays.
[2024-10-10] MEDS: MORPHINE SULF INJ 10 MG/ML VIAL 4 MG IVP (09:54)
[2024-10-10] MEDS: ONDANSETRON INJ 2 MG/ML INJ 2 ML 4 MG IV (09:54)
[2024-10-10] MEDS: AZITHROMYCIN INJ 500 MG in SODIUM CHLORIDE 0.9% 250 ML 250 ML 250 MG IV (09:57)
[2024-10-10] MEDS: ACETAMINOPHEN 500 MG TABLET 1000 MG PO (09:58)
--- NOTE | 2024-10-10 10:01 | XR_ITS ---
Examination: CT brain head without contrast. 2-D sagittal coronal reconstructions Date and time of exam:October 10, 2024 1048 hours INDICATIONS: Generalized headaches beginning this morning CTDI: vol (mGy):54.1 DLP: (mGycm):1112 Technique: Multiple CT axial sections of the brain have been obtained, 5 mm slice thickness. Contrast has not been administered. 2-D sagittal, coronal reconstructions have been obtained Low dose protocols were performed. One or more of the following dose reduction techniques were used; automated exposure control, adjustment of the mA and/or KV according to patient size, use of iterative reconstruction technique. Findings: No significant ventricular enlargement. Intra-axial or extra-axial hemorrhage density is not seen. No mass effect or midline shift Basal cisterns are not remarkable. Fourth ventricle is midline. Cranial vault intact. Impression: Negative for acute hemorrhage, mass effect or midline shift Mild chronic pansinusitis
[2024-10-10 10:19] LABS: Collection Type, Urine Clean Catch; Squamous Epithelial Cell,Urine 0 /hpf (0-5)
[2024-10-10 10:27] LABS: Bilirubin,Urine Negative (Negative); Blood,Urine Negative (Negative); Clarity,Urine Clear (Clear/Hazy); Color,Urine Lt-Yellow (Lt Yel-Yel); Glucose, Urine Negative (Negative); Ketones,Urine Negative (Negative); Leukocyte Esterase,Urine Negative (Negative); Nitrite,Urine Negative (Negative); PH,Urine 6.5 (5.0-7.0); Protein,Urine Trace (Neg - Trace); RBC,Urine 1 /hpf (0-3); Specific Gravity,Urine 1.039 (1.001-1.035); Urobilinogen,Urine Negative mg/dL (0.0-1.0); WBC,Urine 3 /hpf (0-5)
[2024-10-10 10:39] LABS: Amphetamine/Methamp Scrn,U Negative (Negative); Barbiturate Screen,Urine Negative (Negative); Benzodiazepines Screen,Urine Negative (Negative); Benzoylecgonine Screen, Ur Negative (Negative); Fentanyl Screen,Urine Negative (Negative); Opiate Screen,Urine Negative (Negative); THC Screen,Urine Positive (Negative)
[2024-10-10 10:42] LABS: Respiratory Syncytial Virus Ag Negative (Negative)
[2024-10-10 10:43] LABS: Strep A Rapid Negative (Negative)
[2024-10-10] MEDS: hydrALAZINE INJ 20 MG/ML VIAL IVP (10:56)
[2024-10-10] MEDS: NITROGLYCERIN OINT 2% 1 INCH PACKET TOP (11:00)
--- NOTE | 2024-10-10 11:03 | PC.NURSE ---
HOSPITALIST AT BEDSIDE EVALUATING PATIENT FOR ADMISSION
--- NOTE | 2024-10-10 11:10 | PC.NURSE ---
Called [facility] spoke with Jose A regarding all xray results, per Jose A he will contact Dr. Sarah Beth maurer reading images.
[2024-10-10] MEDS: ALBUTEROL/IPRATROPIUM (Duoneb) RT SOL 3 ML NEBU INH (11:35)
[2024-10-10 12:00] LABS: Cocci Serology, IgM Negative (Negative)
--- NOTE | 2024-10-10 12:07 | ECHO_ITS ---
Transthoracic Echo Report Ht (in): 73 Wt (lb): 220 Exam Location: Echo Lab Status: Inpatient Workflow Developer: Bryanna Templeton Indications: Procedure Performed: BP: 133 / 81 HR: 109 Technical Quality: Technically difficult study MEASUREMENTS (Male / Female) Normal Values 2D ECHO LV Diastolic Diameter PLAX 6.4 cm 4.2 - 5.9 / 3.9 - 5.3 cm LV Systolic Diameter PLAX 5.1 cm IVS Diastolic Thickness 0.6 cm 0.6 - 1.0 / 0.6 - 0.9 cm LVPW Diastolic Thickness 1.0 cm 0.6 - 1.0 / 0.6 - 0.9 cm LV Relative Wall Thickness 0.3 LVOT Diameter 1.9 cm Aortic Root Diameter 2.3 cm LA Systolic Diameter LX 4.1 cm 3.0 - 4.0 / 2.7 - 3.8 cm LV Ejection Fraction MOD BP 42.5 % >= 55 % LV Cardiac Index MOD BP 3279.7 cm?/min?m? LV Ejection Fraction MOD 4C 43.7 % LV Cardiac Index MOD 4C 3041.3 cm?/min?m? LV Ejection Fraction 4C AL 45.0 % LV Cardiac Index 4C AL 3242.9 cm?/min?m? LV Ejection Fraction MOD 2C 40.2 % LV Cardiac Index MOD 2C 3432.2 cm?/min?m? LV Ejection Fraction 2C AL 40.6 % LV Cardiac Index 2C AL 3530.7 cm?/min?m? LA Volume Index 33.2 cm?/m? 16 - 28 cm?/m? M-MODE Aortic Root Diameter MM 2.2 cm LA Systolic Diameter MM 5.0 cm LA Ao Ratio MM 2.3 AV Cusp Separation MM 2.1 cm DOPPLER AV Peak Velocity 165.5 cm/s AV Peak Gradient 11.0 mmHg AV Mean Gradient 6.0 mmHg AV Velocity Time Integral 30.3 cm LVOT Peak Velocity 123.0 cm/s LVOT Peak Gradient 6.1 mmHg LVOT Velocity Time Integral 19.6 cm LVOT Cardiac Index 2649.1 cm?/min?m? AV Area Cont Eq vti 1.8 cm? AV Area Cont Eq pk 2.1 cm? MV Peak Velocity 134.0 cm/s MV Peak Gradient 7.2 mmHg MV Mean Velocity 82.6 cm/s MV Mean Gradient 3.0 mmHg MV Area PHT 6.9 cm? MR Peak Velocity 529.0 cm/s MR Peak Gradient 111.9 mmHg Mitral E Point Velocity 105.0 cm/s LV E' Lateral Velocity 5.5 cm/s Mitral E to LV E' Lateral Ratio 18.9 LV E' Septal Velocity 6.7 cm/s Mitral E to LV E' Septal Ratio 15.6 TR Peak Velocity 310.7 cm/s TR Peak Gradient 38.6 mmHg PV Peak Velocity 113.0 cm/s PV Peak Gradient 5.1 mmHg FINDINGS Left Ventricle The left ventricular cavity size is mildly increased with normal wall thickness. Normal left ventricular diastolic filling pattern for age. The ejection fraction is visually estimated at 40-45%. Global left ventricular systolic function is mildly decreased. Right Ventricle The right ventricle is normal in size and systolic function. The estimated right ventricular systolic pressure, 41 mmHg. RAP 5. Left Atrium The left atrium is normal by two-dimensional, color flow and Doppler imaging with no structural abnormalities, no thrombus formation present. Right Atrium The right atrium is normal by two-dimensional imaging, color flow and Doppler imaging with no structural abnormalities, no thrombus formation present. Atrial Septum The interatrial septum appears normal with no evidence of a shunt. Aorta The aorta is normal by two-dimensional, color flow and Doppler interrogation. Mitral Valve Deoyoyqt-lu-iifdwv mitral regurgitation. Mild mitral annular calcification. Aortic Valve The aortic valve is trileaflet and normal by two-dimensional, color flow and Doppler interrogation. There is no significant aortic valve regurgitation. Tricuspid Valve The tricuspid valve is normal by two-dimensional, color flow and Doppler interrogation. There is mild tricuspid valve regurgitation. Pulmonic Valve The pulmonic valve is not well visualized. There is no significant pulmonic valve regurgitation. Vessels The pulmonary artery appears normal. The inferior vena cava pulmonary and hepatic veins appear normal. Pericardium The pericardium is normal by two-dimensional imaging. There is no significant pericardial effusion. CONCLUSIONS Indication: SOB pulm edema, min JVD LV size mildly increased. Mild LV dysfucntion. Estimated EF at 40-45%. Normal Rv size and funvtion. Mildly elevated estimated RVSP, 41 mmHg. RAP 5. Moderate MR. Mild MAC. Mild TR. No pericardial effusion. Uche Rivas (Electronically Signed) Final Date: 10 October 2024 23:55
[2024-10-10] MEDS: cefTRIAXone/D5w 1gm IV premix 1 GM/50 ML BAG IV (13:24)
[2024-10-10] MEDS: FUROSEMIDE INJ 10 MG/ML 4ML VIAL 40 MG IVP (13:24)
--- NOTE | 2024-10-10 15:58 | ESHP_ITS ---
<Statement entered by Zonia Parker MD - 10/10/24 19:54> In summary: 54-year-old male no PMHx [facility] with acute dyspnea, admitted for CHF versus pneumonia. Started on diuresis and ANTIBIOTICS. Rapid influenza and flu were negative. Cultures are pending. Additionally, he reported 2 weeks of cough, followed by hemoptysis approximately 2 tablespoons of jossie blood. For this we have ordered Legionella and cocci consulted pulmonology. I?ve reviewed the note and agree with the resident's assessment and plan, with the exceptions outlined above. I personally went over the labs, imaging, home medications, and prior records, and examined the patient. The case was also reviewed with the attending physician. Please note: this document was transcribed using voice recognition technology; minor inaccuracies may be present. Zonia Parker DO PGY II Documentation for date of: 10/10/24 HPI History of Present Illness History of present illness: 54-year-old male with no stated past medical history who presents to the ED with progressively worsening shortness of breath, which he describes as not getting enough air. His symptoms initially began approximately two weeks ago when his daughter became sick. At that time, he developed lethargy, headaches, chills, congestion, and subjective fevers that lasted for five days. These symptoms then improved somewhat. However, two days ago 10/08/2024, his cough worsened and became productive of purulent sputum, prompting him to present to the ED. During that visit, he was diagnosed with pneumonia, UTI, and CHF. 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 He was discharged with cefdinir 300 mg twice daily for 7 days, azithromycin 500 mg daily for 3 days, and furosemide 20 mg by mouth. He reports feeling at his usual state of health yesterday, with no need for an inhaler. However, his shortness of breath returned this morning at 3:00 AM, waking him from sleep, and has been worsening since. He describes the SOB as exacerbated when lying flat. He also complains of abdominal bloating and a tightness sensation. He denies any new or different symptoms today, other than the increased shortness of breath and abdominal discomfort. He denies fevers, chills, chest pain, abdominal pain, nausea, vomiting, diarrhea, or urinary symptoms today. Past medical history ? none Allergies ? no known drug allergy Social history ? independent with ADLs. 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 States the farm is very [place]. [id number] smoking history, quit 20 years ago. Still uses marijuana. 1 alcoholic drink per month. No drug use. ED course: ED vitals: Temperature 97.6, respiratory rate 22, heart rate 120, blood pressure 159/113, O2 saturation 95% on 6 L nasal cannula. Notable labs include white blood cell count 13, troponin negative, BNP 104 (275 from 2 days ago). Chest x- ray showed moderate CHF. Chest CT angiogram was negative for pulmonary embolism, revealed moderate CHF. Head CT showed negative acute hemorrhage, mild chronic pansinusitis. Patient received 1 L normal saline bolus in the ED. patient also received Zosyn 3.75 g IV x 1 and azithromycin 500 mg IV x 1 Exam Vital Signs Temp Pulse Resp BP Pulse Ox O2 Del Method O2 Flow Rate 98.8 F 116 H 28 H 121/73 94 L Oxy Mask 2 10/10/24 15:00 10/10/24 15:35 10/10/24 15:35 10/10/24 15:00 10/10/24 15:35 10/10/24 15:00 10/10/24 15:35 Narrative Exam General: Alert and oriented x 3, moderately distressed, nontoxic appearing, short of breath at the end of sentences Skin: Warm, dry, intact, no obvious rash. Head: Normocephalic, atraumatic. Cardiovascular: S1+S2. Tachycardic. Palpable thrills. Possible elevated JVP. Respiratory: Reduced air entry bilaterally. Respirations labored. Inspiratory coarse crackles bilaterally. Gastrointestinal: Tympanic, soft, nontender. No guarding or rebound tenderness. Extremities: No edema, no cyanosis, no clubbing. 2+ radial pulse bilaterally, 2+ posterior tibial pulse bilaterally. Neuro: No focal deficits observed. Moving all extremities. No overt cerebellar signs/incoordination. Psychiatric: Cooperative, appropriate affect Results: Labs 10/10/24 07:12 10/10/24 07:35 Labs: Short CBC 10/10/24 Range/Units 07:12 WBC 13.0 H (3.8-10.6) Thou/mm3 Hgb 14.5 (13.5-16.0) g/dL Hct 42.8 (41.0-53.0) % Plt Count 361 D (140-440) Thou/mm3 BMP 10/10/24 07:35 Sodium 142 Potassium 4.0 D Chloride 107 Carbon Dioxide 26.6 BUN 22 Creatinine 1.3 Glucose 114 H Calcium 8.8 Cardiac Enzymes 10/10/24 Range/Units 07:35 Troponin I < 0.020 (0.0-0.045) ng/mL Liver Function 10/10/24 Range/Units 07:35 Total Bilirubin 0.6 (0.3-1.2) mg/dL AST 55 H (0-34) U/L ALT 115 H (10-49) U/L Alkaline Phosphatase 54 (46-116) U/L Albumin 4.3 (3.5-5.0) gm/dL Urine 10/10/24 Range/Units 10:10 Urine Color Lt-Yellow (Lt Yel-Yel) Urine Clarity Clear (Clear/Hazy) Urine pH 6.5 (5.0-7.0) Ur Specific [place] 1.039 H (1.001-1.035) Urine Protein Trace (Neg - Trace) Urine Glucose (UA) Negative (Negative) ABG Interpretation ABG results: 10/10/24 07:35 VBG pH 7.52 VBG pCO2 32 L VBG pO2 39 VBG Base Excess 4 H Quality Measures Quality Measures none Medications Home Medications and Allergies Allergies Allergy/AdvReac Type Severity Reaction Status Date / Time No Known Allergies Allergy Verified 10/08/24 23:23 Visit Medications Acetaminophen (Acetaminophen 325 Mg Tablet) 650 mg PO Q6H PRN PRN Reason: PAIN SCALE 1-3 (mild Stop: 11/09/24 14:51 Acetaminophen (Acetaminophen 325 Mg Tablet) 650 mg PO Q6H PRN PRN Reason: Fever >100.4 Stop: 11/09/24 14:51 Hydrocodone Bitart/Acetaminophen (Hydrocodone/Apap 10/325 Tab) 1 tab PO Q4HR PRN PRN Reason: PAIN SCALE 7-10 (Severe Stop: 10/15/24 14:51 Ceftriaxone Sodium/Dextrose (Rocephin/D5w 1gm Iv Premix) 1 gm in 50 mls @ 100 mls/hr IV QDAY LINDA Stop: 10/17/24 12:29 Last Infusion: 10/10/24 14:04 Dose: Infused Azithromycin 250 mg/ Sodium (Chloride) 250 mls @ 250 mls/hr IV QDAY [facility] Stop: 10/18/24 08:59 Levalbuterol HCl (Levalbuterol Rt 0.31 Mg/3 Ml Nebu) 0.31 mg INH Q8HR PRN PRN Reason: WHEEZING Stop: 11/09/24 12:23 Losartan Potassium (Losartan Potassium 25 Mg Tablet) 25 mg PO QDAY [facility] [place] Stop: 11/10/24 08:59 Ondansetron HCl (Ondansetron Inj 2 Mg/Ml Inj 2 Ml) 4 mg IVP Q6H PRN; Protocol PRN Reason: NAUSEA OR VOMITING Stop: 11/09/24 14:51 Oxycodone/Acetaminophen (Oxycodone/Apap 5/325 Tablet) 1 tab PO Q6H PRN PRN Reason: PAIN SCALE 4-6 (Moderate Stop: 10/15/24 14:51 Pantoprazole Sodium (Pantoprazole Inj 40 Mg Vial) 40 mg IVP QDAY [facility] Stop: 11/09/24 14:59 Last Admin: 10/10/24 15:09 Dose: 40 mg Discontinued Medications Acetaminophen (Acetaminophen 500 Mg Tablet) 1,000 mg PO X1 ONE Stop: 10/10/24 09:36 Last Admin: 10/10/24 09:58 Dose: 1,000 mg Albuterol/Ipratropium (Albuterol/Ipratropium (Duoneb) Rt Sujatha 3 Ml Nebu) 3 ml INH Q4HRRT [facility] Stop: 11/09/24 11:29 Last Admin: 10/10/24 11:35 Dose: 3 ml Furosemide (Furosemide Inj 10 Mg/Ml 4ml Vial) 40 mg IVP X1 ONE Stop: 10/10/24 12:11 Last Admin: 10/10/24 13:24 Dose: 40 mg Hydralazine HCl (Hydralazine Inj 20 Mg/Ml Vial) 20 mg IVP X1 ONE Stop: 10/10/24 10:28 Last Admin: 10/10/24 10:56 Dose: 20 mg Sodium Chloride (Ns) 1,000 mls @ 999 mls/hr IV .Q1H1M ONE Stop: 10/10/24 08:23 Last Infusion: 10/10/24 10:21 Dose: Infused Piperacillin/Tazobactam/Dextrose (Zosyn) 3.375 gm in 50 mls @ 100 mls/hr IV X1 ONE Stop: 10/10/24 08:00 Last Infusion: 10/10/24 09:41 Dose: Infused Azithromycin 500 mg/ Sodium (Chloride) 250 mls @ 250 mls/hr IV QDAY LINDA Stop: 10/17/24 09:34 Last Infusion: 10/10/24 11:38 Dose: Infused Morphine Sulfate (Morphine Sulf Inj 10 Mg/Ml Vial) 4 mg IVP X1 ONE Stop: 10/10/24 09:36 Last Admin: 10/10/24 09:54 Dose: 4 mg Nitroglycerin (Nitroglycerin Oint 2% 1 Inch Packet) 1 inch TOP X1 ONE Stop: 10/10/24 10:28 Last Admin: 10/10/24 11:00 Dose: 1 inch Ondansetron HCl (Ondansetron Inj 2 Mg/Ml Inj 2 Ml) 4 mg IV X1 ONE; Protocol Stop: 10/10/24 09:36 Last Admin: 10/10/24 09:54 Dose: 4 mg Assessment & Plan Plan Assessment: 54-year-old male with no stated past medical history who presents to the ED with progressively worsening shortness of breath. Admitted for acute dyspnea likely secondary to new onset CHF. #Hemoptysis Ddx: Bronchitis, infxn (bacterial vs fungal vs viral), lung abscess, malignancy. 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 Consulted pulmonology, Dr. Bruner ? Blood cultures?follow results ? Cocci serology?follow results ? Legionella urine?follow results ? Levalbuterol 0.31 mg inhaler every 8 hours as needed (chosen over duoneb due to tachycardia) ? Echocardiogram ordered ? Strict ins and out ? Lasix 40 mg IV x 1 ? Daily weights ? Limit fluids to 1.5 L daily ? Cardiac stratification (TSH, A1C, Lipid panel) ? follow results #Hypertension Blood pressure on presentation was 159/113 Patient given hydralazine x 1 and blood pressure within normal limit after Plan ?Losartan 25 mg p.o. daily started on admission #?Obstructive sleep apnea While in hospital oxygen saturations while sleeping dips below 90s, improves while awake Plan ? Monitor ? May require referral for sleep study outpatient Health Maintenance: Diet: Regular GI prophylaxis: Pantoprazole DVT prophylaxis: Heparin 5000 units subcut twice daily Antibiotics: Azithromycin and ceftriaxone CODE STATUS: Full code Disposition: Telemetry Case discussed with my attending Dr. James, and senior resident, Dr. Keith Smith MD PGY-1 Attending Provider Attestation/Addendum I have discussed and was present for the essential components of the history, physical examination, diagnosis, and treatment plan with the resident. I agree with the patient's care as documented by the resident and amended herein by me. Rolando James DO. Although this document has been carefully reviewed, there may still be some phonetic and other typographical errors. These errors are purely grammatical due to imperfections in the software program and should not be construed in any way to compromise the substance of the patient's medical care during this visit.
--- NOTE | 2024-10-10 17:18 | PC.NURSE ---
REPORT GIVEN TO BILL, PATIENT TRANSFERRING TO ROOM 274
[2024-10-10] MEDS: HEPARIN SOD INJ 5000 UNIT/ML VIAL SC (20:15)
--- NOTE | 2024-10-10 20:27 | PC.NURSE ---
notified Dr. Dickerson regarding patient coughing up red blood with phlegm and spit about 5 mLs, per patatient he had coughed up even more blood earlier but amount unknown, patient has no other complaints, no new orders received.
[2024-10-10] MEDS: LEVALBUTEROL RT 0.31 MG/3 ML NEBU INH (20:39)
[2024-10-11] VITALS (14 sets, daily range): BP systolic 126–158; BP diastolic 88–108; PULSE 90–115; RESP 15–95; TEMP 36.3–36.7; O2SAT 93–96
--- NOTE | 2024-10-11 03:03 | PC.NURSE ---
notified Dr. Dickerson regarding patient's antibiotics azithromycin and ceftriaxone for AM was Dc'd, per doctor will let day team know.
[2024-10-11 05:46] LABS: Basophils # (Auto) 0.0 Thou/mm3 (0.0-0.2); Basophils % (Auto) 0 % (0-2.5); Eosinophils # (Auto) 0.1 Thou/mm3 (0.0-0.5); Eosinophils % (Auto) 1 % (0-10); Hematocrit 39.8 % (41.0-53.0); Hemoglobin 13.6 g/dL (13.5-16.0); Immature Granulocytes Auto 0.04 Thou/mm3 (0.00-0.00); Lymphocytes # (Auto) 1.8 Thou/mm3 (1.0-4.8); Lymphocytes % (Auto) 18 % (10-50); Mean Corpuscular HGB Conc 34.2 g/dl (31.0-37.0); Mean Corpuscular Hemoglobin 33.1 pg (25.0-35.0); Mean Corpuscular Volume 97 fL (80-100); Monocytes # (Auto) 1.2 Thou/mm3 (0.0-0.8); Monocytes % (Auto) 12 % (0-12); Neutrophils # (Auto) 7.0 Thou/mm3 (1.8-7.7); Neutrophils % (Auto) 69 % (37-80); Nucleated Red Blood Cell # 0.00 Thou/mm3 (0.00-0.00); Nucleated Red Blood Cell % 0 /100 WBC (0); Platelet Count 323 Thou/mm3 (140-440); RDW Standard Deviation 46.0 fL (35.1-43.9); Red Blood Count 4.11 Miln/mm3 (4.50-5.90); White Blood Count 10.1 Thou/mm3 (3.8-10.6)
[2024-10-11 06:17] LABS: Alanine Aminotransferase 83 U/L (10-49); Albumin, Serum 3.9 gm/dL (3.5-5.0); Albumin/Globulin Ratio 1.4 (1.2-2.2); Alkaline Phosphatase 49 U/L (46-116); Anion Gap 10 (7-16); Aspartate Amino Transferase 30 U/L (0-34); BUN/Creatinine Ratio 12 Ratio (12-20); Bilirubin,Total 0.9 mg/dL (0.3-1.2); Blood Urea Nitrogen 16 mg/dL (9-23); Calcium 8.6 mg/dL (8.3-10.6); Calcium (Corrected) 8.7 mg/dL (8.5-10.1); Carbon Dioxide 30.7 mMol/L (20.0-31.0); Cardiac Risk Estimate 4.5 RATIO (4.0-6.7); Chloride 103 mMol/L (98-107); Cholesterol 200 mg/dL (132-200); Creatinine (Component) 1.3 mg/dL (0.6-1.3); Estimated Creatinine Clearance 74.3 mL/min (>60); Free T4 (Free Thyroxine) 1.10 ng/dL (0.89-1.76); Globulin 2.7 gm/dL (2.3-3.5); Glucose 113 mg/dL (74-106); HDL Cholesterol 44 mg/dL (40-60); LDL Cholesterol,Calculated 138 mg/dL (0-130); Magnesium 1.8 mg/dL (1.6-2.6); Osmolality,Calculated 289 (275-295); Phosphorous 3.0 mg/dL (2.4-5.1); Potassium 3.7 mMol/L (3.4-5.1); Sodium 144 mMol/L (136-145); Thyroid Stimulating Hormone 2.32 uIU/mL (0.55-4.78); Total Protein 6.6 gm/dL (5.7-8.2); Triglycerides 92 mg/dL (30-150); eGFR > 60 See Note
[2024-10-11] MEDS: Magnesium Sulfate 2 GM Ivpb 2 GM/50 ML BAG IV (08:25)
[2024-10-11] MEDS: FUROSEMIDE INJ 10 MG/ML 4ML VIAL 40 MG IVP (08:25)
[2024-10-11] MEDS: LOSARTAN POTASSIUM 25 MG TABLET PO (08:26)
[2024-10-11] MEDS: LEVALBUTEROL RT 0.31 MG/3 ML NEBU INH (08:55)
[2024-10-11] MEDS: METOPROLOL SUCCINATE XL 25 MG TABCR PO ×2 (11:00→18:36)
[2024-10-11] MEDS: HEPARIN SOD INJ 5000 UNIT/ML VIAL SC ×2 (11:01→20:15)
[2024-10-11 11:13] LABS: Glucose Estimated Average 126 mg/dL (80-131); Hemoglobin A1C 6.0 % Hgb (4.8-6.0)
[2024-10-11 11:44] LABS: Cocci Serology, IgG Negative (Negative)
--- NOTE | 2024-10-11 13:26 | ESPR_ITS ---
<Statement entered by Lalito Law MD - 10/12/24 06:53> I have reviewed the note and agree with the resident's assessment & plan with exceptions as below. I have personally reviewed labs, imaging, home meds/prior records, examined the patient, formulated and discussed management plan with the IM team. Pt examined at bedside today. Pt continuing to improve, off oxygen at this time. Due to patient's smoking history and new onset of heart failure, will consult pulmonology at this time. Will initiate GDMT therapy with beta-evy and ARB at this time. Will try for other GDMT therapy including Entresto starting tomorrow. Cardiology on consult appreciate recs. Repeat hematology and chemistry in AM. Lalito Law, PGY-2 Internal Medicine Documentation for date of: 10/11/24 Subjective Subjective Interval history: No acute overnight events. Patient feels a lot better today, is able to breathe better. Patient did cough up blood with clots times 2 in the morning followed by another 3-4 did episodes with reduced blood. Oxygen requirement has gone down to 2 L now. Able to finish sentences and not short of breath after. No chest pain, no nausea, no vomiting, no abdominal pain, had a bowel movement today. Exam Vital Signs Temp Pulse Resp BP Pulse Ox O2 Del Method O2 Flow Rate 97.6 F 103 H 16 147/98 H 95 Oxy Mask 2 10/11/24 12:00 10/11/24 12:00 10/11/24 12:10/11/24 12:00 10/11/24 12:00 10/11/24 12:10/11/24 12:00 Narrative Exam General: Alert and oriented x 3, moderately distressed, nontoxic appearing, short of breath at the end of sentences Skin: Warm, dry, intact, no obvious rash. Head: Normocephalic, atraumatic. Cardiovascular: S1+S2. Tachycardic. No JVP elevation. No murmurs/thrills/rubs. Respiratory: Reduced air entry bilaterally. No work of breathing. No inspiratory crackles.. Gastrointestinal: Tympanic, soft, nontender. No guarding or rebound tenderness. Extremities: No edema, no cyanosis, no clubbing. 2+ radial pulse bilaterally, 2+ posterior tibial pulse bilaterally. Neuro: No focal deficits observed. Moving all extremities. No overt cerebellar signs/incoordination. Psychiatric: Cooperative, appropriate affect Objective Labs 10/12/24 05:10 10/12/24 05:10 Labs: Laboratory Results - last 24 hr 10/10/24 10/11/24 09:57 04:41 WBC 10.1 RBC 4.11 L Hgb 13.6 Hct 39.8 L MCV 97 MCH 33.1 MCHC 34.2 RDW Std Deviation 46.0 H Plt Count 323 D Neut % (Auto) 69 Lymph % (Auto) 18 [place] % (Auto) 12 Eos % (Auto) 1 Baso % (Auto) 0 Neut # (Auto) 7.0 Lymph # (Auto) 1.8 [place] # (Auto) 1.2 H Eos # (Auto) 0.1 Baso # (Auto) 0.0 Immature Gran # (Auto) 0.04 H Absolute Nucleated RBC 0.00 Immature Gran % 0 Nucleated RBC % 0 Sodium 144 Potassium 3.7 Chloride 103 Carbon Dioxide 30.7 Anion Gap 10 BUN 16 Creatinine 1.3 Estim Creat Clear Calc 74.3 eGFR > 60 BUN/Creatinine Ratio [address] Glu mg/dL 126 Hemoglobin A1c 6.0 Calculated Osmolality 289 Calcium 8.6 Corrected Calcium 8.7 Phosphorus 3.0 Magnesium 1.8 Total Bilirubin 0.9 AST 30 ALT 83 H Alkaline Phosphatase 49 Total Protein 6.6 Albumin 3.9 Globulin 2.7 Albumin/Globulin Ratio 1.4 Triglycerides 92 Cholesterol 200 LDL Cholesterol, Calc 138 H HDL Cholesterol 44 Cholesterol/HDL Ratio 4.5 TSH 2.32 Free T4 1.10 Coccidioides IgG Ab Negative ABG Interpretation ABG results: 10/10/24 07:35 VBG pH 7.52 VBG pCO2 32 L VBG pO2 39 VBG Base Excess 4 H Quality Measures Quality Measures none Assessment & Plan Assessment Current Active Medications: Generic Name Dose Route Start Last Admin Trade Name Freq PRN Reason Stop Dose Admin Acetaminophen 650 mg 10/10/24 14:52 Acetaminophen 325 Mg Tablet PO 11/09/24 14:51 Q6H PRN PAIN SCALE 1-3 (mild Acetaminophen 650 mg 10/10/24 14:52 Acetaminophen 325 Mg Tablet PO 11/09/24 14:51 Q6H PRN Fever >100.4 Hydrocodone Bitart/Acetaminophen 1 tab 10/10/24 14:52 10/11/24 12:25 Hydrocodone/Apap 10/325 Tab PO 10/15/24 14:51 1 tab Q4HR PRN Administration PAIN SCALE 7-10 (Severe Atorvastatin Calcium 40 mg 10/11/24 21:00 Atorvastatin Calcium 20 Mg Tablet PO 11/10/24 20:59 HS LINDA Furosemide 40 mg 10/11/24 09:00 10/11/24 08:25 Furosemide Inj 10 Mg/Ml 4ml Vial IVP 11/10/24 08:59 40 mg QDAY LINDA Administration Heparin Sodium (Porcine) 5,000 unit 10/10/24 21:00 10/11/24 11:01 Heparin Sod Inj 5000 Unit/Ml Vial SC 10/24/24 20:59 5,000 unit Q12HR LINDA Administration Hydralazine HCl 25 mg 10/11/24 08:07 Hydralazine Hcl 25 Mg Tablet PO 11/10/24 08:14 TID PRN SBP > 170mmHg Levalbuterol HCl 0.31 mg 10/10/24 12:24 10/11/24 08:55 Levalbuterol Rt 0.31 Mg/3 Ml Nebu INH 11/09/24 12:23 0.31 mg Q8HR PRN Administration WHEEZING Losartan Potassium 25 mg 10/11/24 09:00 10/11/24 08:26 Losartan Potassium 25 Mg Tablet PO 11/10/24 08:59 25 mg QDAY LINDA Administration Metoprolol Succinate 25 mg 10/11/24 10:15 10/11/24 11:00 Metoprolol Succinate Xl 25 Mg Tabcr PO 11/10/24 10:14 25 mg QDAY LINDA Administration Ondansetron HCl 4 mg 10/10/24 14:52 Ondansetron Inj 2 Mg/Ml Inj 2 Ml IVP 11/09/24 14:51 Q6H PRN NAUSEA OR VOMITING Protocol Oxycodone/Acetaminophen 1 tab 10/10/24 14:52 Oxycodone/Apap 5/325 Tablet PO 10/15/24 14:51 Q6H PRN PAIN SCALE 4-6 (Moderate Pantoprazole Sodium 40 mg 10/10/24 15:00 10/11/24 08:26 Pantoprazole Inj 40 Mg Vial IVP 11/09/24 14:59 40 mg QDAY LINDA Administration Plan Assessment: 54-year-old male with no stated past medical history who presents to the ED with progressively worsening shortness of breath and hemoptysis. Admitted for acute dyspnea secondary to new diagnosis of CHF and hemoptysis secondary to new diagnosis of COPD. #Hemoptysis 2/2 to #New diagnosis COPD Ddx: Bronchitis, infxn (bacterial vs fungal vs viral), lung abscess, malignancy. 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 negative Plan ? Consulted pulmonology, Dr. Bruner, follow recs ? Blood cultures?follow results ? Legionella urine?follow results ? Levalbuterol 0.31 mg inhaler every 8 hours as needed - Discharge patient on Anoro Ellipta for COPD maintenance #SOB requiring supplemental O2 # New onset HFrEF, EF 40 to 45% #Pulmonary vascular congestion 2/2 to new diagnosis HFrEF Patient having worsening shortness of breath while laying flat, now paroxysmal nocturnal dyspnea, no peripheral edema at present. Troponin negative Plan ? Consulted cardiology, Dr. Rivas on board, follow recs ? No plan for cardiac cath at this time ? Start GDMT (metoprolol succinate 50 mg daily, losartan for 1 more day and then switch to Entresto, SGLT2 inhibitor to be started before discharge) ? Strict ins and out ? Lasix 40 mg IV daily, will transition to 20 mg p.o. on discharge ? Daily weights ? Limit fluids to 1.5 L daily #Hyperlipidemia Total cholesterol 200, LDL 138 ASCVD score greater than 7.5% Plan ? Started on atorvastatin 40 mg daily #Prediabetes A1c 6.0 Patient is unaware about any previous prediabetes or diabetes condition - Lifestyle modification, dietary changes - Need to start Jardiance 10 mg, for CHF should be having additional benefit for prediabetes condition #Hypertension Blood pressure on presentation was 159/113 Patient given hydralazine x 1 and blood pressure within normal limit after Plan ? Discontinue losartan tomorrow and start Entresto low-dose #?Obstructive sleep apnea While in hospital oxygen saturations while sleeping dips below 90s, improves while awake Plan ? Monitor ? May require referral for sleep study outpatient Health Maintenance: Diet: Regular GI prophylaxis: Pantoprazole DVT prophylaxis: Heparin 5000 units subcut twice daily Antibiotics: None CODE STATUS: Full code Disposition: Telemetry Case discussed with my attending Dr. James, and senior resident, Dr. Thanh Smith MD PGY-1 Attending Provider Attestation/Addendum I have discussed and was present for the essential components of the history, physical examination, diagnosis, and treatment plan with the resident. I agree with the patient's care as documented by the resident and amended herein by me. Rolando James, DO. Although this document has been carefully reviewed, there may still be some phonetic and other typographical errors. These errors are purely grammatical due to imperfections in the software program and should not be construed in any way to compromise the substance of the patient's medical care during this visit. And
[2024-10-11 14:29] LABS: C-Reactive Protein 4.1 mg/dL (0.0-0.9)
[2024-10-11 14:55] LABS: Sed Rate (ESR) 16 mm/hr (0-20)
--- NOTE | 2024-10-11 17:36 | PD.RESCONSUL ---
HPI Data of Consult Requesting Physician: Mahesh James DO Admitting Provider: Mahesh James DO Attending Provider: Mahesh James DO Primary Care Provider: Zhen Epperson MD Consult Narrative History of present illness: The patient is a 54-year-old gentleman with no significant past medical history presented to ED on 10/10/2024 with chief complaint of worsening of SOB for past 2 weeks. The patient reported that about 2 weeks ago, she was severely stressed out, and remembers that after that, he started developing gradual onset SOB on exertion, later SOB at rest. He also reported that about 2 weeks ago his daughter got sick, and he also developed lethargy, headache, chills, congestion and subjective fevers that lasted about 5 days, but other symptoms are relieved. On 10/08/2024, he presented to ED with complaint of worsening cough and purulent sputum, and was diagnosed with pneumonia, UTI and possible CHF. He was recommended to get admitted to hospital and get further management, but because of his business issue, he was discharged on antibiotics and Lasix. During this presentation, patient also reported hemoptysis, and lube attendant Dr. Bruner was consulted. The patient admitted orthopnea and PND, and mild leg swelling, but denied any palpitations, dizziness or any fever or chills. During my evaluation, his blood pressure was 126/88, sinus tachycardic with heart rate in 108, saturating 95% on 1 L NC. CBC was fairly stable, sodium 144, potassium 3.7, bicarb 30.7, BUN 16, creatinine 1.3, GFR greater than 60, A1c 6.0, magnesium 1.8, CRP 4.1, triglycerides 92, cholesterol 200, LDL 138, HDL cholesterol 44, TSH 2.32, chest x-ray was significant for moderate vascular congestion, EKG revealed sinus tachycardia with short CO interval, with left ventricular hypertrophy, CTA chest revealed no pulmonary artery emboli, but revealed moderate CHF, head CT was negative for acute hemorrhage, mass effect or midline shift, TTE revealed: LV size mildly increased. Mild LV dysfucntion. Estimated EF at 40-45%. Normal Rv size and funvtion. Mildly elevated estimated RVSP, 41 mmHg. RAP 5. Moderate MR. Mild MAC. Mild TR. No pericardial effusion. 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 Admitted occasional marijuana use. Has been recently in a lot of stress due to financial conflict with his son. Family history: Unremarkable Cardiology consultation was done for further management of new onset HFmrEF exacerbation. cc:: cc: Mahesh James, Review of Systems Review of Systems Systems Reviewed: All systems reviewed, normal except as documented (Above) Exam Vital Signs Temp Pulse Resp BP Pulse Ox O2 Del Method O2 Flow Rate 97.6 F 103 H 16 147/98 H 95 Oxy Mask 2 10/11/24 12:00 10/11/24 12:00 10/11/24 12:00 10/11/24 12:00 10/11/24 12:00 10/11/24 12:00 10/11/24 12:00 Narrative Exam General: No acute distress, Alert and Oriented x 3 HEENT: Moist mucous membranes, oropharynx clear Neck: Supple, No masses, No JVD CVS: S1S2 Regular rate and rhythm, No murmurs, rubs or gallops Lungs: Mild bibasilar crackles, no wheeze no rhonchi Abd: Soft, NT/ND, +BS, no organomegaly Ext: No edema, warm and well perfused Skin: No rash Psych: Appropriate mood and affect Results Labs 10/12/24 05:10 10/12/24 05:10 Labs: Short CBC 10/11/24 Range/Units 04:41 WBC 10.1 (3.8-10.6) Thou/mm3 Hgb 13.6 (13.5-16.0) g/dL Hct 39.8 L (41.0-53.0) % Plt Count 323 D (140-440) Thou/mm3 BMP 10/11/24 04:41 Sodium 144 Potassium 3.7 Chloride 103 Carbon Dioxide 30.7 BUN 16 Creatinine 1.3 Glucose 113 H Calcium 8.6 Liver Function 10/11/24 Range/Units 04:41 Total Bilirubin 0.9 (0.3-1.2) mg/dL AST 30 (0-34) U/L ALT 83 H (10-49) U/L Alkaline Phosphatase 49 (46-116) U/L Albumin 3.9 (3.5-5.0) gm/dL ABG Interpretation ABG results: 10/10/24 07:35 VBG pH 7.52 VBG pCO2 32 L VBG pO2 39 VBG Base Excess 4 H Quality Measures Quality Measures none Medications Home Medications and Allergies Allergies Allergy/AdvReac Type Severity Reaction Status Date / Time No Known Allergies Allergy Verified 10/08/24 23:23 Visit Medications Acetaminophen (Acetaminophen 325 Mg Tablet) 650 mg PO Q6H PRN PRN Reason: PAIN SCALE 1-3 (mild Stop: 11/09/24 14:51 Acetaminophen (Acetaminophen 325 Mg Tablet) 650 mg PO Q6H PRN PRN Reason: Fever >100.4 Stop: 11/09/24 14:51 Hydrocodone Bitart/Acetaminophen (Hydrocodone/Apap 10/325 Tab) 1 tab PO Q4HR PRN PRN Reason: PAIN SCALE 7-10 (Severe Stop: 10/15/24 14:51 Last Admin: 10/11/24 12:25 Dose: 1 tab Atorvastatin Calcium (Atorvastatin Calcium 20 Mg Tablet) 40 mg PO HS LINDA Stop: 11/10/24 20:59 Furosemide (Furosemide Inj 10 Mg/Ml 4ml Vial) 40 mg IVP QDAY LINDA Stop: 11/10/24 08:59 Last Admin: 10/11/24 08:25 Dose: 40 mg Heparin Sodium (Porcine) (Heparin Sod Inj 5000 Unit/Ml Vial) 5,000 unit SC Q12HR LINDA Stop: 10/24/24 20:59 Last Admin: 10/11/24 11:01 Dose: 5,000 unit Hydralazine HCl (Hydralazine Hcl 25 Mg Tablet) 25 mg PO TID PRN PRN Reason: SBP > 170mmHg Stop: 11/10/24 08:14 Levalbuterol HCl (Levalbuterol Rt 0.31 Mg/3 Ml Nebu) 0.31 mg INH Q8HR PRN PRN Reason: WHEEZING Stop: 11/09/24 12:23 Last Admin: 10/11/24 08:55 Dose: 0.31 mg Losartan Potassium (Losartan Potassium 25 Mg Tablet) 25 mg PO QDAY LINDA Stop: 11/10/24 08:59 Last Admin: 10/11/24 08:26 Dose: 25 mg Metoprolol Succinate (Metoprolol Succinate Xl 25 Mg Tabcr) 25 mg PO QDAY [facility] Stop: 11/10/24 10:14 Last Admin: 10/11/24 11:00 Dose: 25 mg Ondansetron HCl (Ondansetron Inj 2 Mg/Ml Inj 2 Ml) 4 mg IVP Q6H PRN; Protocol PRN Reason: NAUSEA OR VOMITING Stop: 11/09/24 14:51 Oxycodone/Acetaminophen (Oxycodone/Apap 5/325 Tablet) 1 tab PO Q6H PRN PRN Reason: PAIN SCALE 4-6 (Moderate Stop: 10/15/24 14:51 Last Admin: 10/11/24 16:53 Dose: 1 tab Pantoprazole Sodium (Pantoprazole Inj 40 Mg Vial) 40 mg IVP QDAY [facility] Stop: 11/09/24 14:59 Last Admin: 10/11/24 08:26 Dose: 40 mg Discontinued Medications Acetaminophen (Acetaminophen 500 Mg Tablet) 1,000 mg PO X1 ONE Stop: 10/10/24 09:36 Last Admin: 10/10/24 09:58 Dose: 1,000 mg Albuterol/Ipratropium (Albuterol/Ipratropium (Duoneb) Rt Sujatha 3 Ml Nebu) 3 ml INH Q4HRRT [facility] Stop: 11/09/24 11:29 Last Admin: 10/10/24 11:35 Dose: 3 ml Carvedilol (Carvedilol 3.125 Mg Tablet) 3.125 mg PO BIDWM [facility] Stop: 11/10/24 08:04 Furosemide (Furosemide Inj 10 Mg/Ml 4ml Vial) 40 mg IVP X1 ONE Stop: 10/10/24 12:11 Last Admin: 10/10/24 13:24 Dose: 40 mg Hydralazine HCl (Hydralazine Inj 20 Mg/Ml Vial) 20 mg IVP X1 ONE Stop: 10/10/24 10:28 Last Admin: 10/10/24 10:56 Dose: 20 mg Sodium Chloride (Ns) 1,000 mls @ 999 mls/hr IV .Q1H1M ONE Stop: 10/10/24 08:23 Last Infusion: 10/10/24 10:21 Dose: Infused Piperacillin/Tazobactam/Dextrose (Zosyn) 3.375 gm in 50 mls @ 100 mls/hr IV X1 ONE Stop: 10/10/24 08:00 Last Infusion: 10/10/24 09:41 Dose: Infused Azithromycin 500 mg/ Sodium (Chloride) 250 mls @ 250 mls/hr IV QDAY LINDA Stop: 10/17/24 09:34 Last Infusion: 10/10/24 11:38 Dose: Infused Ceftriaxone Sodium/Dextrose (Rocephin/D5w 1gm Iv Premix) 1 gm in 50 mls @ 100 mls/hr IV QDAY LINDA Stop: 10/17/24 12:29 Last Infusion: 10/10/24 14:04 Dose: Infused Azithromycin 250 mg/ Sodium (Chloride) 250 mls @ 250 mls/hr IV QDAY LINDA Stop: 10/18/24 08:59 Magnesium Sulfate (Magnesium Sulfate Ivpb) 2 gm in 50 mls @ 25 mls/hr IV X1 ONE Stop: 10/11/24 09:55 Last Admin: 10/11/24 08:25 Dose: 25 mls/hr Labetalol HCl (Labetalol Inj 5 Mg/Ml Vial 20 Ml) 10 mg IVP Q2H PRN PRN Reason: SBP above 170 Stop: 11/10/24 07:56 Morphine Sulfate (Morphine Sulf Inj 10 Mg/Ml Vial) 4 mg IVP X1 ONE Stop: 10/10/24 09:36 Last Admin: 10/10/24 09:54 Dose: 4 mg Nitroglycerin (Nitroglycerin Oint 2% 1 Inch Packet) 1 inch TOP X1 ONE Stop: 10/10/24 10:28 Last Admin: 10/10/24 11:00 Dose: 1 inch Ondansetron HCl (Ondansetron Inj 2 Mg/Ml Inj 2 Ml) 4 mg IV X1 ONE; Protocol Stop: 10/10/24 09:36 Last Admin: 10/10/24 09:54 Dose: 4 mg Potassium Chloride (Potassium Chloride 20 Meq Tabcr) 40 meq PO X1 ONE Stop: 10/11/24 07:57 Last Admin: 10/11/24 08:25 Dose: 40 meq Assessment & Plan Plan The patient is a 54-year-old gentleman with no significant past medical history presented to ED on 10/10/2024 with chief complaint of worsening of SOB for past 2 weeks. Cardiology consultation was done for further management of new onset HFmrEF exacerbation. #Acute hypoxic respiratory failure 2/ #Acute exacerbation of new onset HFmrEF Etiology currently unknown for heart failure, likely secondary to viral infection versus recent stress leading to Takotsubo syndrome cardiomyopathy versus less likely CAD leading to ischemia. 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 Presented back again on 10/11/2024. Received furosemide 40 Mg IV x 1, in the ED, and helped with SOB. TTE revealed: LV size mildly increased. Mild LV dysfucntion. Estimated EF at 40-45%. Normal Rv size and funvtion. Mildly elevated estimated RVSP, 41 mmHg. RAP 5. Moderate MR. Mild MAC. Mild TR. No pericardial effusion. - Continue on furosemide 40 Mg IV daily - Strict ins and outs - Daily fluid restriction to 1500 cc/day, Incorporated in diet - Low-sodium diet - No plan for cardiac cath at this time - Plan to start on GDMT, starting with metoprolol 50 Mg daily, and losartan 25 Mg daily, with plan of switching losartan to Entresto if allowed by blood pressure, and SGLT 2 to inhibitor, and spironolactone can be added as an outpatient basis. 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 - Metoprolol succinate 50 Mg daily - Discontinue losartan 25 Mg daily, and start on Entresto low-dose starting from tomorrow morning During discharge, patient should be sent home on metoprolol succinate 50 Mg daily, Entresto low-dose, SGLT2 inhibitor Jardiance 10 mg daily, and furosemide 20 Mg daily. Spironolactone will be considered as an outpatient basis. Follow-up with x ray examiner of aircraft Dr. Rivas in 1 week. Rest of the management deferred to primary care team. Thank you for cardiology consultation. We appreciate the opportunity to participate in this patient's care. Cardiology team will continue to follow-up on this patient. The patient's management plan was discussed with my attending physician MD Ildefonso Chauhan MD, PGY3 Attending Provider Attestation/Addendum I have personally seen and examined the patient separately on the above date of service and discussed the plan of care with the resident. I reviewed the resident Dr. Ildefonso Mclean consultation progress note and agree with the resident findings and plan in the note above and have also edited the documentation to reflect my findings and plan. Uche Rivas M.D. Interventional Cardiology
[2024-10-11] MEDS: ATORVASTATIN CALCIUM 20 MG TABLET 40 MG PO (20:16)
[2024-10-12] VITALS (13 sets, daily range): BP systolic 146–159; BP diastolic 98–110; PULSE 18–106; RESP 16–96; TEMP 36.1–36.3; O2SAT 91–99
[2024-10-12 05:52] LABS: Basophils # (Auto) 0.1 Thou/mm3 (0.0-0.2); Basophils % (Auto) 1 % (0-2.5); Eosinophils # (Auto) 0.1 Thou/mm3 (0.0-0.5); Eosinophils % (Auto) 1 % (0-10); Hematocrit 44.0 % (41.0-53.0); Hemoglobin 14.8 g/dL (13.5-16.0); Immature Granulocytes Auto 0.02 Thou/mm3 (0.00-0.00); Lymphocytes # (Auto) 2.2 Thou/mm3 (1.0-4.8); Lymphocytes % (Auto) 24 % (10-50); Mean Corpuscular HGB Conc 33.6 g/dl (31.0-37.0); Mean Corpuscular Hemoglobin 33.1 pg (25.0-35.0); Mean Corpuscular Volume 98 fL (80-100); Monocytes # (Auto) 1.2 Thou/mm3 (0.0-0.8); Monocytes % (Auto) 13 % (0-12); Neutrophils # (Auto) 5.6 Thou/mm3 (1.8-7.7); Neutrophils % (Auto) 61 % (37-80); Nucleated Red Blood Cell # 0.00 Thou/mm3 (0.00-0.00); Nucleated Red Blood Cell % 0 /100 WBC (0); Platelet Count 359 Thou/mm3 (140-440); RDW Standard Deviation 45.6 fL (35.1-43.9); Red Blood Count 4.47 Miln/mm3 (4.50-5.90); White Blood Count 9.2 Thou/mm3 (3.8-10.6)
[2024-10-12 06:09] LABS: Alanine Aminotransferase 84 U/L (10-49); Albumin, Serum 3.8 gm/dL (3.5-5.0); Albumin/Globulin Ratio 1.4 (1.2-2.2); Alkaline Phosphatase 50 U/L (46-116); Anion Gap 9 (7-16); Aspartate Amino Transferase 33 U/L (0-34); BUN/Creatinine Ratio 13 Ratio (12-20); Bilirubin,Total 0.9 mg/dL (0.3-1.2); Blood Urea Nitrogen 17 mg/dL (9-23); Calcium 8.7 mg/dL (8.3-10.6); Calcium (Corrected) 8.9 mg/dL (8.5-10.1); Carbon Dioxide 30.4 mMol/L (20.0-31.0); Chloride 103 mMol/L (98-107); Creatinine (Component) 1.3 mg/dL (0.6-1.3); Estimated Creatinine Clearance 74.3 mL/min (>60); Globulin 2.7 gm/dL (2.3-3.5); Glucose 103 mg/dL (74-106); Magnesium 1.8 mg/dL (1.6-2.6); Osmolality,Calculated 284 (275-295); Phosphorous 3.4 mg/dL (2.4-5.1); Potassium 3.9 mMol/L (3.4-5.1); Sodium 142 mMol/L (136-145); Total Protein 6.5 gm/dL (5.7-8.2); eGFR > 60 See Note
[2024-10-12] MEDS: FUROSEMIDE INJ 10 MG/ML 4ML VIAL 40 MG IVP (07:57)
[2024-10-12] MEDS: METOPROLOL SUCCINATE XL 25 MG TABCR 50 MG PO (07:58)
[2024-10-12] MEDS: HEPARIN SOD INJ 5000 UNIT/ML VIAL SC (07:58)
--- NOTE | 2024-10-12 08:13 | PC.NURSE ---
called RT for breathing treatment
[2024-10-12] MEDS: IPRATROPIUM RT 0.5 MG/ 2.5 ML NEBU INH ×2 (08:43→14:29)
[2024-10-12] MEDS: LEVALBUTEROL RT 0.63 MG/3 ML NEBU INH ×2 (08:43→14:30)
--- NOTE | 2024-10-12 08:52 | PC.SS ---
Patient is alert/oriented. Patient was able to verify demographics. Patient was admitted for sob. He states he resides with his partner, Sondra. Patient states he's independent with ADL's. Patient states his family assists in transportation assistance to appointments and community. Patient does not have 02 at home. He is currently on 02 in hospital setting. PCP: Dr. Epperson @ [facility]. Last appt. was a few months ago. Patient states his alt medical decision maker is his partner, Sondra. Patient to d/c back home upon discharge. Alt medical decision maker: Sondra Bucio, partner, d/c plan: home transportation: family/friends.
--- NOTE | 2024-10-12 10:43 | PD.PUCONS ---
HPI Pulmonology Consult Data of Consult Requesting Physician: Mahesh James DO Primary Care Provider: Zhen Epperson MD Consult Narrative History of present illness: Patient is a 54-year-old male with no significant past medical history who presented with increasing shortness of breath. On date of presentation patient was unable to ambulate comfortably between his bed and bathroom. Patient the day prior was able to play basketball at a good pace. Patient with no recent lower extremity edema though has been having orthopnea for the past 3 weeks. Patient reports that he had a undiagnosed upper respiratory tract infection about 3 weeks ago that he self treated with drbb-xre-rhobase medications. Patient continued to have hemoptysis from that time with large amounts in the morning which resolved throughout the day though continued to persist. Patient was seen in the emergency department on 10/08 and found to have suggestion of potential pneumonia and UTI. Had had fevers but no night sweats or weight loss. He was given IV Lasix with prompt diuresis and improvement and was discharged home on antibiotics after he declined being hospitalized. Patient returns now with worsening dyspnea. Also increasing fatigue in the last 24 to 48 hours. Pulmonology consulted for ongoing hemoptysis. Patient having both fresh blood as well as mostly clot predominantly in the morning now. Hemoptysis has improved in the previous 2 days as his oxygen requirements have improved in conjunction with ongoing diuresis and optimization of fluid status along with empiric antibiotics for community-acquired pneumonia. Patient was a former smoker, quit 20 years ago. Patient had significant secondhand exposure since childhood as both parents smoked very heavily. Both parents of advanced emphysema or the complications thereof. Patient continues to smoke marijuana. Patient notes that he also has recent stress with family. Patient without previous history of known lung disease. CT imaging on this admission shows homogenous emphysema throughout both lungs. 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 Patient has 7 children overall healthy, youngest is 2 and his partner is . He lives with his girlfriend. Patient lives a very healthy lifestyle with regular boxing and exercise including weightlifting. He actively participates in sports with his children/grandchildren and in the community. cc:: cc: Mahesh James DO Review of Systems Review of Systems Narrative Review of Systems: Pertinent review of systems completed with significant findings including the HPI above. Past Medical History Past Medical History Comments H COMMENT: I have personally reviewed past medical history/past surgical history, social history, and family history with pertinent findings included in HPI above. Meds Home Medications and Allergies Allergies Allergy/AdvReac Type Severity Reaction Status Date / Time No Known Allergies Allergy Verified 10/08/24 23:23 Exam Vital Signs Temp Pulse Resp BP Pulse Ox O2 Del Method O2 Flow Rate 97.6 F 103 H 16 147/98 H 95 Oxy Mask 2 10/11/24 12:00 10/11/24 12:00 10/11/24 12:00 10/11/24 12:00 10/11/24 12:00 10/11/24 12:00 10/11/24 12:00 Narrative Exam General: Patient breathing comfortably on room air, no distress, remains alert/oriented x 3 HEENT: NC/AT, MMM, oropharynx clear Lungs: No crackles or wheezing bilaterally Heart: RRR, no murmurs/rubs/gallops Abdomen: Minimal distention, morbidly obese, soft Extremities: No peripheral edema, cyanosis or clubbing Neuro: Nonfocal on gross examination Psych: Calm, cooperative, appropriate mood/affect, good historian Physical Exam Completion Physical Exam Complete?: Yes 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 10/12/24 05:10 10/12/24 05:10 Labs: Short CBC 10/11/24 Range/Units 04:41 WBC 10.1 (3.8-10.6) Thou/mm3 Hgb 13.6 (13.5-16.0) g/dL Hct 39.8 L (41.0-53.0) % Plt Count 323 D (140-440) Thou/mm3 BMP 10/11/24 04:41 Sodium 144 Potassium 3.7 Chloride 103 Carbon Dioxide 30.7 BUN 16 Creatinine 1.3 Glucose 113 H Calcium 8.6 Liver Function 10/11/24 Range/Units 04:41 Total Bilirubin 0.9 (0.3-1.2) mg/dL AST 30 (0-34) U/L ALT 83 H (10-49) U/L Alkaline Phosphatase 49 (46-116) U/L Albumin 3.9 (3.5-5.0) gm/dL ABG Interpretation ABG results: 10/10/24 07:35 VBG pH 7.52 VBG pCO2 32 L VBG pO2 39 VBG Base Excess 4 H Assessment & Plan Additional Assessment Additional Assessment: Hemoptysis Emphysema Right upper lobe pneumonia Patient with hemoptysis likely in the setting of acute infiltrate noted on CT imaging of the right upper lobe. Most likely is community-acquired pneumonia but could be atypical organism given that he does smoke marijuana, warned the need for cessation and potential further aspergillus in the scenario. He does have structural lung disease. Patient does warrant follow-up imaging in 4 to 6 weeks to ensure clearance of infiltrative process superimposed on background of significant emphysema. Should be done to ensure clearance of any infectious etiology after antibiotic course and exclude presence of any lesion that may warrant further investigation though he quit smoking greater than 20 years ago and had 15-ukuu-hohz history, malignancy seems less likely at this point. Patient's COPD/emphysema is not inhibiting his ability at baseline and the predominant feature likely that his acute on imaging is significant interstitial lung parenchymal edema consistent with his newly diagnosed heart failure. Will continue to be optimized by cardiology for this and likely precipitant was either stress-induced cardiomyopathy or viral myocarditis given recent upper respiratory tract infection. Patient placed on Anoro which is likely reasonable although it is CAT score and mMRC remains low and he does not have any significant history of exacerbations. He notably does not have any significant eosinophilia. Cocci IgM was negative on this admission. 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 Patient will return to activity gradually though he would benefit from cardiac rehab that was available in our community. I reassured him that he is likely to have recovery of his ejection fraction with continued optimize medical therapy. His lung disease will likely be of limited effect given his prior history of excellent functional status prior to acute illness that precipitated current presentation. I remain available for any further questions and will continue to follow peripherally as needed. Thank you for allowing me to participate in the care of this patient. Additional Plan Additional Plan: PLAN: See MD orders and discussion above. Will continue supportive care of the organ system problems, diagnoses, and failures noted above. [A central line continues to be necessary for infusion of medications and IV fluids, it is to be removed when other adequate venous access is accomplished.] [Cannot be safely managed without restraints as potential for harm secondary to inadvertent movement and loss of tubes and lines outweighs the burdens of restraint.] This patient is critically ill and required [] minutes of my time to provide documentation, evaluate, manage and maintain or prevent deterioration of the organ systems and problems noted above. This critical care time does not include time I spent performing procedures that are reported separately. [If ortega catheter present, it remains necessary to monitor urine output continuously, and/or divert urine from the skin. It will be removed per policy when it is not needed for these purposes.] Provider Notation Provider Notation: Although this document has been carefully reviewed, there may still be some phonetic and other typographical errors. These errors are purely grammatical due to imperfections in the software program and should not be construed in any way to compromise the substance of the patient's medical care during this visit. Thank you for the opportunity and privilege in assisting you with this patient's care and management.
--- NOTE | 2024-10-12 11:56 | PD.RESPRO ---
Documentation for date of: 10/12/24 Exam Vital Signs Temp Pulse Resp BP Pulse Ox O2 Del Method O2 Flow Rate 97.4 F 99 20 151/104 H 98 Room Air 2 10/12/24 08:00 10/12/24 09:37 10/12/24 09:37 10/12/24 08:00 10/12/24 08:47 10/12/24 08:00 10/12/24 07:05 Objective Labs 10/12/24 05:10 10/12/24 05:10 Labs: Laboratory Results - last 24 hr 10/11/24 10/12/24 04:41 05:10 WBC 9.2 RBC 4.47 L Hgb 14.8 Hct 44.0 MCV 98 MCH 33.1 MCHC 33.6 RDW Std Deviation 45.6 H Plt Count 359 D Neut % (Auto) 61 Lymph % (Auto) 24 [place] % (Auto) 13 H Eos % (Auto) 1 Baso % (Auto) 1 Neut # (Auto) 5.6 Lymph # (Auto) 2.2 [place] # (Auto) 1.2 H Eos # (Auto) 0.1 Baso # (Auto) 0.1 Immature Gran # (Auto) 0.02 H Absolute Nucleated RBC 0.00 Immature Gran % 0 Nucleated RBC % 0 ESR 16 Sodium 142 Potassium 3.9 Chloride 103 Carbon Dioxide 30.4 Anion Gap 9 BUN 17 Creatinine 1.3 Estim Creat Clear Calc 74.3 eGFR > 60 BUN/Creatinine Ratio 13 Glucose 103 Calculated Osmolality 284 Calcium 8.7 Corrected Calcium 8.9 Phosphorus 3.4 Magnesium 1.8 Total Bilirubin 0.9 AST 33 ALT 84 H Alkaline Phosphatase 50 C-Reactive Prot, Quant 4.1 H Total Protein 6.5 Albumin 3.8 Globulin 2.7 Albumin/Globulin Ratio 1.4 ABG Interpretation ABG results: 10/10/24 07:35 VBG pH 7.52 VBG pCO2 32 L VBG pO2 39 VBG Base Excess 4 H Quality Measures Quality Measures none Assessment & Plan Assessment Current Active Medications: Generic Name Dose Route Start Last Admin Trade Name Freq PRN Reason Stop Dose Admin Acetaminophen 650 mg 10/10/24 14:52 Acetaminophen 325 Mg Tablet PO 11/09/24 14:51 Q6H PRN PAIN SCALE 1-3 (mild Acetaminophen 650 mg 10/10/24 14:52 Acetaminophen 325 Mg Tablet PO 11/09/24 14:51 Q6H PRN Fever >100.4 Hydrocodone Bitart/Acetaminophen 1 tab 10/10/24 14:52 10/11/24 22:51 Hydrocodone/Apap 10/325 Tab PO 10/15/24 14:51 1 tab Q4HR PRN Administration PAIN SCALE 7-10 (Severe Atorvastatin Calcium 40 mg 10/11/24 21:00 10/11/24 20:16 Atorvastatin Calcium 20 Mg Tablet PO 11/10/24 20:59 40 mg HS LINDA Administration Furosemide 40 mg 10/11/24 09:00 10/12/24 07:57 Furosemide Inj 10 Mg/Ml 4ml Vial IVP 11/10/24 08:59 40 mg QDAY LINDA Administration Heparin Sodium (Porcine) 5,000 unit 10/10/24 21:00 10/12/24 07:58 Heparin Sod Inj 5000 Unit/Ml Vial SC 10/24/24 20:59 5,000 unit Q12HR LINDA Administration Hydralazine HCl 25 mg 10/11/24 08:07 Hydralazine Hcl 25 Mg Tablet PO 11/10/24 08:14 TID PRN SBP > 170mmHg Ipratropium [place] 0.5 mg 10/12/24 08:00 10/12/24 08:43 Ipratropium Rt 0.5 Mg/ 2.5 Ml Nebu INH 11/11/24 07:59 0.5 mg Q8HRRT LINDA Administration Levalbuterol HCl 0.63 mg 10/12/24 08:00 10/12/24 08:43 Levalbuterol Rt 0.63 Mg/3 Ml Nebu INH 11/11/24 07:59 0.63 mg Q8HRRT LINDA Administration Metoprolol Succinate 50 mg 10/12/24 09:00 10/12/24 07:58 Metoprolol Succinate Xl 25 Mg Tabcr PO 11/11/24 08:59 50 mg QDAY LINDA Administration Ondansetron HCl 4 mg 10/10/24 14:52 Ondansetron Inj 2 Mg/Ml Inj 2 Ml IVP 11/09/24 14:51 Q6H PRN NAUSEA OR VOMITING Protocol Oxycodone/Acetaminophen 1 tab 10/10/24 14:52 10/11/24 16:53 Oxycodone/Apap 5/325 Tablet PO 10/15/24 14:51 1 tab Q6H PRN Administration PAIN SCALE 4-6 (Moderate Pantoprazole Sodium 40 mg 10/10/24 15:00 10/12/24 07:58 Pantoprazole Inj 40 Mg Vial IVP 11/09/24 14:59 40 mg QDAY LINDA Administration Sacubitril/Valsartan 1 tab 10/12/24 07:45 10/12/24 07:58 Sacubitril 24 Mg/Valsartan 26 Mg Tablet PO 11/11/24 07:44 1 tab BID LINDA Administration
--- NOTE | 2024-10-12 13:51 | ESDS_ITS ---
<Statement entered by Lalito Law MD - 10/12/24 17:57> I have reviewed the note and agree with the resident's assessment & plan with exceptions as below. I have personally reviewed labs, imaging, home meds/prior records, examined the patient, formulated and discussed management plan with the IM team. Patient examined at bedside today. Patient to be discharged with GDMT therapy for his new onset HFrEF, including Entresto, metoprolol, Jardiance in addition to Lasix. Patient based on some imaging findings could have underlying emphysema/COPD, however patient will need formal pulmonary function testing to be done outpatient pulmonology for formal diagnosis of these conditions. We will discharge patient on Anoro Ellipta and recommendations to follow-up outpatient for PFTs. Patient to follow-up with cardiology on outpatient discharge. Patient's echo showed reduced ejection fraction 40 to 45%, RVSP in the 40s, however anticipate this will improve with diuresis and GDMT therapy. Patient was then discharged with the following instructions listed below. Lalito Law, PGY-2 Internal Medicine Planned Discharge Date 10/12/24 DS: Providers Provider Date of admission: 10/10/24 10:41 Primary care physician: Zhen Epperson MD Admitting Provider: Mahesh James DO Attending Provider on Admission: Mahesh James DO Consults: 10/10/24 15:11 Consult to Pulmonology Routine Comment: Hemoptysis Consulting Provider: Gio Bruner I 10/11/24 08:10 Consult to Cardiology Urgent Comment: Consulting Provider: Uche Rivas Instructions: new-onset HFrEF Attending Provider on DC: Mahesh James DO Discharging Provider: Mahesh James DO DS: Diagnosis Problem List Completed Was Problem List Reviewed/Reconciled?: Yes Hospital Course Hospital Course Hospital course: 54-year-old male with no stated past medical history presented to the ED with progressively worsening dyspnea and hemoptysis. Patient was admitted for new diagnosis of HFrEF, new diagnosis of COPD in the setting of pneumonia. ED course: Initial vitals included temperature 97.6, respiratory rate 22, heart rate 120, blood pressure 159/113, O2 saturation 95% on 6 L nasal cannula. Notable labs include white blood cell count 13, troponin negative, BNP 104 (275 from 2 days ago). Chest x-ray showed moderate CHF. Chest CT angiogram was negative for pulmonary embolism, revealed moderate CHF. Head CT showed negative acute hemorrhage, mild chronic pansinusitis. Patient received 1 L normal saline bolus in the ED. patient also received Zosyn 3.75 g IV x 1 and azithromycin 500 mg IV x 1 Hospital course: Upon admission, the patient exhibited systolic dysfunction with an ejection fraction of 40-45% on echocardiography, prompting cardiology to initiate guideline-directed medical therapy (GDMT), including a metoprolol XL, low-dose Entresto, and Jardiance. Concurrently, pulmonology attributed hemoptysis to acute right lower lobe pneumonia superimposed on newly diagnosed pulmonary emphysema. Discharge medications included Anoro Ellipta for COPD exacerbation prevention. At the time of discharge patient is stable. Patient has been instructed to take Augmentin for pneumonia, restrict fluid intake, take medications as prescribed, do daily weights, and follow-up with cardiology in 1 week's time. Consults: ? Cardiology ? Pulmonology Discharge instructions: Follow-up with PCP within 1-2 weeks of discharge. You may see a provider at the [facility] at the address below. Please call the number below to make an appointment. * Follow-up with cardiology, Dr. Rivas, within 1-2 weeks of discharge. * Continue using ANORO ELLIPTA inhaler 1 puff daily (NEW). * Continue using FLUTICASONE inhaller 1 puff twice daily (NEW). * Continue taking AUGMENTIN twice daily at the dose below (NEW). * Continue taking AZITHROMYCIN as instructed on the package (NEW). * Continue using ENTRESTO twice daily at the dose below (NEW). * Continue taking METOPROLOL XL once daily at the dose below (NEW). * Continue taking JARDIANCE 10 mg daily (NEW). * Continue taking medications as prescribed below. * Return to Emergency Room if symptoms persist, worsen, or new symptoms develop. Admission diagnoses: #Hemoptysis #Right upper lobe pneumonia #New diagnosis emphysema (COPD) #New diagnosis HFrEF, EF 40 to 45% #Pulmonary vascular congestion #Hyperlipidemia #Prediabetes #Hypertension Case discussed with my attending Dr. James , and senior resident, Dr. Juno Smith MD PGY-1 Time Spent with Patient Time attestation: Total time spent providing and/or coordinating discharge services: Time spent: Greater than 30 minutes Exam Vital Signs Temp Pulse Resp BP Pulse Ox O2 Del Method O2 Flow Rate 97.2 F 91 18 146/98 H 96 Room Air 2 10/12/24 12:00 10/12/24 12:00 10/12/24 12:10/12/24 12:00 10/12/24 12:10/12/24 12:00 10/12/24 07:05 Narrative Exam General: Alert and oriented x 3, moderately distressed, nontoxic appearing, short of breath at the end of sentences Skin: Warm, dry, intact, no obvious rash. Head: Normocephalic, atraumatic. Cardiovascular: S1+S2. No JVP elevation. No murmurs/thrills/rubs. Respiratory: Reduced air entry bilaterally. No work of breathing. No wheeze. Gastrointestinal: Tympanic, soft, nontender. No guarding or rebound tenderness. Extremities: No edema, no cyanosis, no clubbing. 2+ radial pulse bilaterally, 2+ posterior tibial pulse bilaterally. Neuro: No focal deficits observed. Moving all extremities. No overt cerebellar signs/incoordination. Psychiatric: Cooperative, appropriate affect Discharge Plan Plan Patient Disposition: HOME (Self Care) Patient condition on transfer: Stable Care Plan Goals: * Follow-up with primary care doctor within 1-2 weeks of discharge. You may see a provider at the [facility] at the address below. Please call the number below to make an appointment. * Follow-up with cardiology, Dr. Rivas, within 1-2 weeks of discharge. call for an appointment * Continue using ANORO ELLIPTA inhaler 1 puff daily (NEW). * Continue using FLUTICASONE inhaller 1 puff twice daily (NEW). * Continue taking AUGMENTIN twice daily at the dose below (NEW). * Continue taking AZITHROMYCIN as instructed on the package (NEW). * Continue using ENTRESTO twice daily at the dose below (NEW). * Continue taking METOPROLOL XL once daily at the dose below (NEW). * Continue taking JARDIANCE 10 mg daily (NEW). * Continue taking medications as prescribed below. * Return to Emergency Room if symptoms persist, worsen, or new symptoms develop. [facility] [address] [place] [address] Prescriptions/Referrals Prescriptions/Med Rec: New fluticasone propionate 220 mcg/actuation HFA aerosol inhaler 1 puff inhalation BID Qty: 12 0RF umeclidinium-vilanterol [Anoro Ellipta] 62.5-25 mcg/actuation blister with device 1 inh inhalation Q24H Qty: 60 0RF amoxicillin-pot clavulanate 875-125 mg tablet 1 tab PO BID 5 Days Qty: 10 0RF azithromycin [Zithromax Z-Edwin] 250 mg tablet See Rx Instructions .ROUTE .COMPLEX Qty: 6 0RF Rx Instructions: For 250 mg dose pack: take 500 mg today (day 1), then 250 mg for 4 days (days 2-5) metoprolol succinate 50 mg tablet extended release 24 hr 50 mg PO QDAY Qty: 30 0RF Entresto 24-26 mg tablet 1 tab PO BID Qty: 60 0RF Jardiance 10 mg tablet 10 mg PO QAM Qty: 30 0RF Continued ibuprofen 800 mg tablet 800 mg PO TID PRN (Reason: pain) Qty: 30 0RF furosemide [Lasix] 20 mg tablet 20 mg PO QDAY Qty: 30 0RF albuterol sulfate 90 mcg/actuation HFA aerosol inhaler 2 puff inhalation Q6H PRN (Reason: shortness of breath or wheezing) Qty: 8.5 0RF Discontinued cefdinir 300 mg capsule 300 mg PO BID Qty: 14 0RF azithromycin [Zithromax TRI-EDWIN] 500 mg tablet 500 mg PO QDAY 3 Days Qty: 3 0RF Referrals: Zhen Epperson MD [Primary Care Provider] - Patient/Caregiver Discharge Instructions Education Materials: Chest and Lung Problems, Lung Anatomy, Shortness of Breath Coping, Coping with Heart Failure, Heart Failure Making Changes to ..., Heart Failure Print Language: Spanish Stand Alone Forms: Sonia Award Info., Patient Portal Info Letter Discharge Order Discharge Orders: Discharge (Routine); Ordered 10/12/24 Ordered By: Zonia Parker Quality Discharge Quality Measures VTE prophylaxis Attestestation Attestation I have discussed and was present for the essential components of the discharge history, physical examination, diagnosis, and discharge treatment plan with the resident. I agree with the patient's discharge care as documented by the resident and amended herein by me. Rolando James DO. Patient significantly improved on day of discharge, on room air with no respiratory distress. With the patient's new onset heart failure, will need close follow-up with primary care provider as well as cardiology as stated above. Patient will be discharged on GDMT consisting of Entresto, Jardiance and metoprolol succinate for now, may need to start spironolactone in the outpatient setting. Patient will continue his Lasix 20 mg tablet daily. For the patient's new diagnosis of COPD, per pulmonology recommendations we will start Anoro Ellipta and fluticasone inhaler as prescribed above. Patient will also continue a short course of antibiotics consisting of Augmentin and azithromycin for pneumonia. The patient understood all instructions, all questions answered satisfactorily. It was also explained to the patient that he should weigh himself daily, take an additional dose of Lasix if he notices a 2 to 3 pound weight gain or 5 pound weight gain in 1 week. It was also recommended he limit his fluid intake to 1.8 to 2 L/day which he understood. Hopefully his heart function does improve pending his medication compliance. It was strenuously emphasized that he needs to stop smoking marijuana, he also stated he does not smoke cigarettes any longer. The patient understood all discharge instructions, all questions were answered satisfactorily. The patient was instructed to return to the Emergency Department is symptoms worsened or persisted. Although this document has been carefully reviewed, there may still be some phonetic and other typographical errors. These errors are purely grammatical due to imperfections in the software program and should not be construed in any way to compromise the substance of the patient's medical care during this visit.
--- NOTE | 2024-10-12 14:03 | PD.RESPRO ---
Documentation for date of: 10/12/24 Subjective Subjective Interval history: The patient was seen and examined at the bedside this morning. He reported doing well. He reported improvement in shortness of breath, and was saturating well in room air. He was mildly hypertensive, but was started on Entresto this morning. Physical exam was unremarkable. Labs at baseline, and WNL. Chamber Walker Dr. Bruner was consulted, regarding hemoptysis, and reported that carcinoma is unlikely, and recent SOB was likely secondary to pneumonia and HFrEF exacerbation. Recommended to continue with metoprolol succinate 50 Mg daily, Entresto 24-26 mg daily, and Jardiance 10 Mg daily. Also, continue the patient on Lasix 40 Mg p.o. daily. Exam Vital Signs Temp Pulse Resp BP Pulse Ox O2 Del Method O2 Flow Rate 97.2 F 91 18 146/98 H 96 Room Air 2 10/12/24 12:00 10/12/24 12:00 10/12/24 12:00 10/12/24 12:00 10/12/24 12:00 10/12/24 12:00 10/12/24 07:05 Narrative Exam General: No acute distress, Alert and Oriented x 3 HEENT: Moist mucous membranes, oropharynx clear Neck: Supple, No masses, No JVD CVS: S1S2 Regular rate and rhythm, No murmurs, rubs or gallops Lungs: Mild bibasilar crackles, no wheeze no rhonchi Abd: Soft, NT/ND, +BS, no organomegaly Ext: No edema, warm and well perfused Skin: No rash Psych: Appropriate mood and affect Objective Labs 10/12/24 05:10 10/12/24 05:10 Labs: Laboratory Results - last 24 hr 10/11/24 10/12/24 04:41 05:10 WBC 9.2 RBC 4.47 L Hgb 14.8 Hct 44.0 MCV 98 MCH 33.1 MCHC 33.6 RDW Std Deviation 45.6 H Plt Count 359 D Neut % (Auto) 61 Lymph % (Auto) 24 Gregg % (Auto) 13 H Eos % (Auto) 1 Baso % (Auto) 1 Neut # (Auto) 5.6 Lymph # (Auto) 2.2 Gregg # (Auto) 1.2 H Eos # (Auto) 0.1 Baso # (Auto) 0.1 Immature Gran # (Auto) 0.02 H Absolute Nucleated RBC 0.00 Immature Gran % 0 Nucleated RBC % 0 ESR 16 Sodium 142 Potassium 3.9 Chloride 103 Carbon Dioxide 30.4 Anion Gap 9 BUN 17 Creatinine 1.3 Estim Creat Clear Calc 74.3 eGFR > 60 BUN/Creatinine Ratio 13 Glucose 103 Calculated Osmolality 284 Calcium 8.7 Corrected Calcium 8.9 Phosphorus 3.4 Magnesium 1.8 Total Bilirubin 0.9 AST 33 ALT 84 H Alkaline Phosphatase 50 C-Reactive Prot, Quant 4.1 H Total Protein 6.5 Albumin 3.8 Globulin 2.7 Albumin/Globulin Ratio 1.4 ABG Interpretation ABG results: 10/10/24 07:35 VBG pH 7.52 VBG pCO2 32 L VBG pO2 39 VBG Base Excess 4 H Quality Measures Quality Measures none Assessment & Plan Assessment Current Active Medications: Generic Name Dose Route Start Last Admin Trade Name Freq PRN Reason Stop Dose Admin Acetaminophen 650 mg 10/10/24 14:52 Acetaminophen 325 Mg Tablet PO 11/09/24 14:51 Q6H PRN PAIN SCALE 1-3 (mild Acetaminophen 650 mg 10/10/24 14:52 Acetaminophen 325 Mg Tablet PO 11/09/24 14:51 Q6H PRN Fever >100.4 Hydrocodone Bitart/Acetaminophen 1 tab 10/10/24 14:52 10/12/24 12:35 Hydrocodone/Apap 10/325 Tab PO 10/15/24 14:51 1 tab Q4HR PRN Administration PAIN SCALE 7-10 (Severe Atorvastatin Calcium 40 mg 10/11/24 21:00 10/11/24 20:16 Atorvastatin Calcium 20 Mg Tablet PO 11/10/24 20:59 40 mg HS LINDA Administration Furosemide 40 mg 10/11/24 09:00 10/12/24 07:57 Furosemide Inj 10 Mg/Ml 4ml Vial IVP 11/10/24 08:59 40 mg QDAY LINDA Administration Heparin Sodium (Porcine) 5,000 unit 10/10/24 21:00 10/12/24 07:58 Heparin Sod Inj 5000 Unit/Ml Vial SC 10/24/24 20:59 5,000 unit Q12HR LINDA Administration Hydralazine HCl 25 mg 10/11/24 08:07 Hydralazine Hcl 25 Mg Tablet PO 11/10/24 08:14 TID PRN SBP > 170mmHg Ipratropium [place] 0.5 mg 10/12/24 08:00 10/12/24 08:43 Ipratropium Rt 0.5 Mg/ 2.5 Ml Nebu INH 11/11/24 07:59 0.5 mg Q8HRRT LINDA Administration Levalbuterol HCl 0.63 mg 10/12/24 08:00 10/12/24 08:43 Levalbuterol Rt 0.63 Mg/3 Ml Nebu INH 11/11/24 07:59 0.63 mg Q8HRRT LINDA Administration Metoprolol Succinate 50 mg 10/12/24 09:00 10/12/24 07:58 Metoprolol Succinate Xl 25 Mg Tabcr PO 11/11/24 08:59 50 mg QDAY LINDA Administration Ondansetron HCl 4 mg 10/10/24 14:52 Ondansetron Inj 2 Mg/Ml Inj 2 Ml IVP 11/09/24 14:51 Q6H PRN NAUSEA OR VOMITING Protocol Oxycodone/Acetaminophen 1 tab 10/10/24 14:52 10/11/24 16:53 Oxycodone/Apap 5/325 Tablet PO 10/15/24 14:51 1 tab Q6H PRN Administration PAIN SCALE 4-6 (Moderate Pantoprazole Sodium 40 mg 10/10/24 15:00 10/12/24 07:58 Pantoprazole Inj 40 Mg Vial IVP 11/09/24 14:59 40 mg QDAY LINDA Administration Sacubitril/Valsartan 1 tab 10/12/24 07:45 10/12/24 07:58 Sacubitril 24 Mg/Valsartan 26 Mg Tablet PO 11/11/24 07:44 1 tab BID LINDA Administration Plan The patient is a 54-year-old gentleman with no significant past medical history presented to ED on 10/10/2024 with chief complaint of worsening of SOB for past 2 weeks. Cardiology consultation was done for further management of new onset HFmrEF exacerbation. #Acute hypoxic respiratory failure 2/2 #Acute exacerbation of new onset HFmrEF Etiology currently unknown for heart failure, likely secondary to viral infection versus recent stress leading to Takotsubo syndrome cardiomyopathy versus less likely CAD leading to ischemia. 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 Presented back again on 10/11/2024. Received furosemide 40 Mg IV x 1, in the ED, and helped with SOB. TTE revealed: LV size mildly increased. Mild LV dysfucntion. Estimated EF at 40-45%. Normal Rv size and funvtion. Mildly elevated estimated RVSP, 41 mmHg. RAP 5. Moderate MR. Mild MAC. Mild TR. No pericardial effusion. - Continue on furosemide 40 Mg IV daily - Strict ins and outs - Daily fluid restriction to 1500 cc/day, Incorporated in diet - Low-sodium diet - No plan for cardiac cath at this time - Plan to start on GDMT, starting with metoprolol 50 Mg daily, and Entresto 26-24 Mg and SGLT 2 to inhibitor Jardiance, and spironolactone can be added as an outpatient basis. #Hemoptysis Chamber Walker Dr. Bruner on board Recommended less likely to be carcinoma, even though patient has 51-53-obtc-year of smoking history. Likely current etiology is 2/2 pneumonia further complicated by CHF exacerbation. #Prediabetes A1c 6.0 Patient is unaware about any previous prediabetes or diabetes condition - Lifestyle modification, dietary changes - Starting Jardiance 10 mg, for CHF should be having additional benefit for prediabetes condition #Hypertension Patient blood pressure has been fluctuating from 120s to 160s systolic, but did not had any previous history of hypertension. - Metoprolol succinate 50 Mg daily - Entresto low-dose During discharge, patient should be sent home on metoprolol succinate 50 Mg daily, Entresto low-dose, SGLT2 inhibitor Jardiance 10 mg daily, and furosemide 20 Mg daily. Spironolactone will be considered as an outpatient basis. Follow-up with veterinary laboratory diagnostician Dr. Rivas in 1 week. Rest of the management deferred to primary care team. Thank you for cardiology consultation. We appreciate the opportunity to participate in this patient's care. Cardiology team will continue to follow-up on this patient. The patient's management plan was discussed with my attending physician MD Ildefonso Chauhan MD, PGY3 Attending Provider Attestation/Addendum I have personally seen and examined the patient separately on the above date of service and discussed the plan of care with the resident. I reviewed the resident Dr. Ildefonso Mclean consultation progress note and agree with the resident findings and plan in the note above and have also edited the documentation to reflect my findings and plan. Uche Rivas M.D. Interventional Cardiology
[2024-10-12 15:03] LABS: Amphetamine/Methamp Scrn,U Negative (Negative); Barbiturate Screen,Urine Negative (Negative); Benzodiazepines Screen,Urine Negative (Negative); Benzoylecgonine Screen, Ur Negative (Negative); Fentanyl Screen,Urine Negative (Negative); Opiate Screen,Urine Positive (Negative); THC Screen,Urine Positive (Negative)
[2024-10-18 06:39] LABS: Legionella Ag, EIA, Urine* NOT DETECTED
== END 2024-10-12 16:20 | disposition home or self-care (01) | DRG 139 ==
LOC: SERX 10:27 → SERHOLD 11:05 → S2NX 17:30
PROVIDERS: Physician Assistant; Admitting Provider Student in an Organized Health Care Education/Training Program; Emergency Provider Emergency Medicine; PCP Family Medicine; Visit Provider Student in an Organized Health Care Education/Training Program
DX: J18.9 Pneumonia, unspecified organism (principal); R04.2 Hemoptysis; I16.0 Hypertensive urgency; J81.1 Chronic pulmonary edema; R51.9 Headache, unspecified; I11.0 Hypertensive heart disease with heart failure; E78.5 Hyperlipidemia, unspecified; I50.22 Chronic systolic (congestive) heart failure; J44.0 Chronic obstructive pulmonary disease with (acute) lower respiratory infection; J96.01 Acute respiratory failure with hypoxia; J32.4 Chronic pansinusitis; J43.9 Emphysema, unspecified; Z79.84 Long term (current) use of oral hypoglycemic drugs; R73.03 Prediabetes; Z79.899 Other long term (current) drug therapy; Z87.891 Personal history of nicotine dependence
CPT/HCPCS: 36415; 70450; 71046; 71275; 80053; 80061; 80307; 81001; 82803; 83036; 83605; 83735; 83880; 84100; 84439; 84443; 84484; 85025; 85379; 85610; 85652; 85730; 86140; 86331; 86635; 87040; 87400; 87449; 87634; 87651; 87811; 93005; 93306; 94640; 96365; 96366; 96375; 99285; A4649; A9270; J0360; J0456; J0696; J1644; J1938; J2270; J2405; J2470; J2543; J3475; J7030; J7050; Q9967